=== PATIENT | female | born 1935 | race Caucasian/White ===

== ENCOUNTER 2017-10-29 15:58 | Observation (INO) | payer MEDICARE ==
[~2017-10-29] VITALS: Ht 134.6 cm; Wt 36.4 kg
[2017-10-29] VITALS (9 sets, daily range): BP systolic 164–188; BP diastolic 71–94; PULSE 71–83; RESP 15–18; TEMP 96.7; O2SAT 98–100
[~2017-10-29 15:58] MED LIST: ASPI81 PO; CALTTAB2 PO; CLOP75 PO; CRES20TA PO; FISH1000 PO; METO25 PO; NIAC500 PO; PRIN5TAB PO; RANI150C PO; SYNT88TA PO; [UNRECOGNIZED DRUG - CODE] SL
[2017-10-29] MEDS ORDERED: METO-309 PO (16:09)
[2017-10-29] MEDS ORDERED: ROSU40 PO (16:09)
[2017-10-29] MEDS ORDERED: LEVO88TA2 PO (16:09)
[2017-10-29] MEDS ORDERED: TYLE325T PO (16:09)
[2017-10-29] MEDS ORDERED: SODIUM CHLORIDE 0.9% FLUSH 10 ML FLUSH IVF PRN (16:15)
[2017-10-29 16:18] LABS: AUTOMATED NEUTROPHIL # 6.6 TH/MM3 (1.8-7.7); BASOPHIL % 0.5 % (0.0-2.0); EOSINOPHIL # 0.1 TH/MM3 (0-0.4); EOSINOPHIL % 0.9 % (0.0-4.0); HEMATOCRIT 34.4 % (35.0-46.0); HEMOGLOBIN 11.1 GM/DL (11.6-15.3); LYMPH % 15.4 % (9.0-44.0); LYMPHOCYTE # 1.3 TH/MM3 (1.0-4.8); MEAN CELL VOLUME 99.7 FL (80.0-100.0); MEAN CORPUSCULAR HEMOGLOBIN 32.3 PG (27.0-34.0); MEAN CORPUSCULAR HGB CONC 32.4 % (32.0-36.0); MEAN PLATELET VOLUME 9.1 FL (7.0-11.0); MONO % 5.3 % (0.0-8.0); MONOCYTE # 0.5 TH/MM3 (0-0.9); NEUT % 77.9 % (16.0-70.0); PLATELET COUNT 267 TH/MM3 (150-450); RED BLOOD COUNT 3.45 MIL/MM3 (4.00-5.30); RED CELL DISTRIBUTION WIDTH 12.9 % (11.6-17.2); WHITE BLOOD COUNT 8.5 TH/MM3 (4.0-11.0)
[2017-10-29 16:26] LABS: CHLORIDE 107 MEQ/L (98-107); SODIUM (NA) 140 MEQ/L (136-145)
[2017-10-29 16:29] LABS: ALBUMIN 3.5 GM/DL (3.4-5.0); BICARBONATE 24.5 MEQ/L (21.0-32.0); CALCIUM 8.8 MG/DL (8.5-10.1)
[2017-10-29 16:30] LABS: BLOOD UREA NITROGEN 41 MG/DL (7-18); GLUCOSE,RANDOM 143 MG/DL (74-106)
[2017-10-29 16:32] LABS: ALT (GPT) 22 U/L (10-53); AST (GOT) 18 U/L (15-37)
[2017-10-29 16:33] LABS: GLOMERULAR FILTRATION RATE 31 ML/MIN (>89)
[2017-10-29 16:34] LABS: TOTAL BILIRUBIN ADULT 0.2 MG/DL (0.2-1.0); TOTAL PROTEIN 7.2 GM/DL (6.4-8.2)
[2017-10-29 16:35] LABS: ALKALINE PHOSPHATASE 104 U/L (45-117)
--- NOTE | 2017-10-29 16:35 | PD ---
HPI Chief Complaint: Neuro Symptoms/ Deficits Time Seen by Provider: 16:02 Travel History International Travel<30 days: No Contact w/Intl Traveler<30days: No Traveled to known affect area: No History of Present Illness HPI Patient's 82 years old and arrives to the ER with a health licensed investment sales assistant. Approximately 8 hours prior to ER arrival she developed confusion and abnormal speech. Confusion was intermittent 8 hours ultimately precipitating the ER visit. She has been in her normal state of health lately however her and her principal care provider at home recently underwent surgery, presumably a stressor for the patient. In the ER she has no pain shortness of breath fever nausea and dizziness and weakness to report. No new or different medication. PFSH Past Medical History Arthritis: Yes Blood Disorders: No Heart Rhythm Problems: No Cancer: No Cardiovascular Problems: Yes High Cholesterol: Yes Chemotherapy: No Chest Pain: Yes Congestive Heart Failure: No Coronary Artery Disease: Yes Diabetes: No Endocrine: Yes GERD: No Genitourinary: Yes Headaches: Yes Hepatitis: No Hiatal Hernia: Yes Hypertension: Yes Immune Disorder: No Kidney Stones: No Musculoskeletal: Yes Neurologic: Yes Psychiatric: No Reproductive: No Respiratory: Yes Radiation Therapy: No Renal Failure: No Thyroid Disease: Yes (HYPOTHYROIDISM) Ulcer: No ?: Not Menopausal: Yes Past Surgical History Abdominal Surgery: Yes (CHOLECYSTECTOMY) AICD: No Appendectomy: No Arteriovenous Shunt: No Cardiac Surgery: Yes (CARDIAC STENT PLACEMENT) Cholecystectomy: Yes Coronary Artery Bypass Graft: Yes Coronary Stent: Yes Eye Surgery: Yes (MAcULAR DEGENERATION/laser sx) Insulin Pump: No Joint Replacement: No Pacemaker: No Thoracic Surgery: Yes (CABG X 3 ) Tonsillectomy: Yes Other Surgery: Yes Social History Alcohol Use: No Tobacco Use: No Substance Use: No Allergies-Medications (Allergen,Severity, Reaction): Coded Allergies: Sulfa (Sulfonamide Antibiotics) (Verified Allergy, Severe, NAUSEA, 10/29/17) codeine (Verified Allergy, Severe, NAUSEA, 10/29/17) penicillin G (Verified Allergy, Severe, NAUSEA, 10/29/17) propoxyphene (Verified Allergy, Unknown, 10/29/17) Reported Meds & Prescriptions Reported Meds & Active Scripts Active Reported Tylenol (Acetaminophen) 325 Mg Tab 650 Mg PO Q4H PRN Levothyroxine (Levothyroxine Sodium) 88 Mcg Tab 88 Mcg PO DAILY Lopressor (Metoprolol Tartrate) 50 Mg Tab 25 Mg PO BID Crestor (Rosuvastatin Calcium) 40 Mg Tab 80 Mg PO HS Review of Systems Except as stated in HPI: all other systems reviewed are Neg General / Constitutional: No: Fever Gastrointestinal: No: Nausea Physical Exam Narrative GENERAL: 82 yo F, WNWD, mild anxiety SKIN: Warm and dry. HEAD: Atraumatic. Normocephalic. EYES: Pupils equal and round. No scleral icterus. No injection or drainage. ENT: No nasal bleeding or discharge. Mucous membranes pink and moist. NECK: Trachea midline. No JVD. CARDIOVASCULAR: Regular rate and rhythm. RESPIRATORY: No accessory muscle use. Clear to auscultation. Breath sounds equal bilaterally. GASTROINTESTINAL: Abdomen soft, non-tender, nondistended. Hepatic and splenic margins not palpable. MUSCULOSKELETAL: Extremities without clubbing, cyanosis, or edema. No obvious deformities. NEUROLOGICAL: AOx3. CNIII-XII. Motor function normal x all four extremities. Speech is normal. PSYCHIATRIC: Appropriate mood and affect; insight and judgment normal. Data Data Last Documented VS Vital Signs Date Time Temp Pulse Resp B/P (MAP) Pulse Ox O2 Delivery O2 Flow Rate FiO2 10/29/17 17:00 77 16 173/78 (109) 100 Room Air VS Orders Orders Electrocardiogram (10/29/17 16:06) Prothrombin Time / Inr (Pt) (10/29/17 16:06) Act Partial Throm Time (Ptt) (10/29/17 16:06) Complete Blood Count With Diff (10/29/17 16:06) Comprehensive Metabolic Panel (10/29/17 16:06) Drug Screen, Random Urine (10/29/17 16:06) Ua Includes Microscopic (10/29/17 16:06) Ct Brain W/O Iv Contrast(Rout) (10/29/17 16:06) Ecg Monitoring (10/29/17 16:06) Iv Access Insert/Monitor (10/29/17 16:06) Oximetry (10/29/17 16:06) Blood Glucose (10/29/17 16:06) Sodium Chloride 0.9% Flush (Ns Flush) (10/29/17 16:15) Troponin I (10/29/17 16:29) Aspirin (Aspirin) (10/29/17 18:15) Admit Order (Ed Use Only) (10/29/17 ) Soil Conservation Teacher / Telemetry KANCHAN.Q8H (10/29/17 18:09) Vital Signs (Adult) Q4H (10/29/17 18:09) Diet 1999 Ada Cons Carb (10/29/17 Dinner) Activity Bed Rest (10/29/17 18:09) Notify Dr: Other (10/29/17 18:09) Labs Laboratory Tests Test 10/29/17 16:05 10/29/17 17:50 White Blood Count 8.5 TH/MM3 Red Blood Count 3.45 MIL/MM3 Hemoglobin 11.1 GM/DL Hematocrit 34.4 % Mean Corpuscular Volume 99.7 FL Mean Corpuscular Hemoglobin 32.3 PG Mean Corpuscular Hemoglobin Concent 32.4 % Red Cell Distribution Width 12.9 % Platelet Count 267 TH/MM3 Mean Platelet Volume 9.1 FL Neutrophils (%) (Auto) 77.9 % Lymphocytes (%) (Auto) 15.4 % Monocytes (%) (Auto) 5.3 % Eosinophils (%) (Auto) 0.9 % Basophils (%) (Auto) 0.5 % Neutrophils # (Auto) 6.6 TH/MM3 Lymphocytes # (Auto) 1.3 TH/MM3 Monocytes # (Auto) 0.5 TH/MM3 Eosinophils # (Auto) 0.1 TH/MM3 Basophils # (Auto) 0.0 TH/MM3 CBC Comment DIFF FINAL Differential Comment Prothrombin Time 10.0 SEC Prothromb Time International Ratio 1.0 RATIO Activated Partial Thromboplast Time 22.2 SEC Blood Urea Nitrogen 41 MG/DL Creatinine 1.60 MG/DL Random Glucose 143 MG/DL Total Protein 7.2 GM/DL Albumin 3.5 GM/DL Calcium Level 8.8 MG/DL Alkaline Phosphatase 104 U/L Aspartate Amino Transf (AST/SGOT) 18 U/L Alanine Aminotransferase (ALT/SGPT) 22 U/L Total Bilirubin 0.2 MG/DL Sodium Level 140 MEQ/L Potassium Level 4.1 MEQ/L Chloride Level 107 MEQ/L Carbon Dioxide Level 24.5 MEQ/L Anion Gap 9 MEQ/L Estimat Glomerular Filtration Rate 31 ML/MIN Troponin I LESS THAN 0.02 NG/ML Urine pH 6.0 Urine Protein 100 mg/dL Urine Glucose (UA) NEG mg/dL Urine Ketones NEG mg/dL Urine Occult Blood TRACE Urine Nitrite NEG Urine Bilirubin NEG Urine Leukocyte Esterase NEG MDM Medical Decision Making Medical Screen Exam Complete: Yes Emergency Medical Condition: Yes Medical Record Reviewed: Yes Differential Diagnosis Metabolic disarray, sepsis, UTI, stroke, TIA, dementia Narrative Course CBC & BMP Diagram 10/29/17 16:05 Total Protein 7.2, Albumin 3.5, Calcium Level 8.8, Alkaline Phosphatase 104, Aspartate Amino Transf (AST/SGOT) 18, Alanine Aminotransferase (ALT/SGPT) 22, Total Bilirubin 0.2 Tn < 0.02 EKG: sinus rate 85 non-specific st changes multiple leads Last Impressions Head CT 10/29/17 1606 Signed Impressions: Service Date/Time: Sunday, October 29, 2017 16:43 - CONCLUSION: Negative for an acute process. David Chery MD FACR Case was discussed with Dr. Wiggins for 4 to [facility]. The patient will be admitted for TIA evaluation. Aspiring given here. Diagnosis Primary Impression: TIA (transient ischemic attack) Qualified Codes: G45.9 - Transient cerebral ischemic attack, unspecified Admitting Information Admitting Physician Requests: Observation Yon Lofton MD Oct 29, 2017 16:35
--- NOTE | 2017-10-29 17:10 | RADRPT ---
EXAM DATE/TIME: 10/29/2017 16:43 [facility] COMPARISON: No previous studies available for comparison. INDICATIONS : Confusion and slurred speech. RADIATION DOSE: 55.75 CTDIvol (mGy) MEDICAL HISTORY : Hypertension. SURGICAL HISTORY : None. ENCOUNTER: Initial ACUITY: 1 day PAIN SCALE: 0/10 LOCATION: cranial TECHNIQUE: Multiple contiguous axial images were obtained of the head. Using automated exposure control and adj ustment of the mA and/or kV according to patient size, radiation dose was kept as low as reasonably a chievable to obtain optimal diagnostic quality images. DICOM format image data is available electro nically for review and comparison. FINDINGS: CEREBRUM: The ventricles are normal for age. No evidence of midline shift, mass lesion, hemorrhage or acute in farction. No extra-axial fluid collections are seen. POSTERIOR FOSSA: The cerebellum and brainstem are intact. The 4th ventricle is midline. The cerebellopontine angle i s unremarkable. EXTRACRANIAL: The visualized portion of the orbits is intact. SKULL: The calvaria is intact. No evidence of skull fracture. CONCLUSION: Negative for an acute process. David Chery MD FACR on October 29, 2017 at 17:07 Board Certified Radiologist. This report was verified electronically.
[2017-10-29 18:10] LABS: BILIRUBIN, URINE NEG (NEG); GLUCOSE,URINE NEG (NEG); KETONE, URINE NEG (NEG); NITRITE,URINE NEG (NEG); URINE LEUKOCYTE ESTERASE NEG (NEG)
[2017-10-29 18:13] LABS: BLOOD, URINE TRACE (NEG)
[2017-10-29] MEDS ORDERED: ASPIRIN 325 MG TAB PO ONE (18:15)
[2017-10-29 18:29] LABS: URINE COLOR YELLOW (YELLW/STRAW)
[2017-10-29 18:30] LABS: SQUAMOUS EPITHELIAL CELL URINE 0-5 /hpf (0-5); WBC, URINE 0-2 /hpf (0-5)
[2017-10-29] MEDS ORDERED: ROSU20 PO (19:16)
[2017-10-29] MEDS ORDERED: ROSUVASTATIN PO SCH (21:00)
[2017-10-29] MEDS: METOPROLOL TARTRATE 25 MG TAB PO SCH (23:18)
--- NOTE | 2017-10-29 23:42 | HHI.HP ---
HPI Service [facility] Hospitalists Primary Care Physician Frankie Mtz MD Admission Diagnosis TIA Chief Complaint: possible TIA Travel History International Travel<30 Days: No Contact w/Intl Traveler <30 Da: No Traveled to Known Affected Are: No History of Present Illness Patient's 82 years old and arrives to the ER with a health video library assistant. Approximately 8 hours prior to ER arrival she developed confusion and abnormal speech. Confusion was intermittent 8 hours ultimately precipitating the ER visit. She has been in her normal state of health lately however her and her principal care provider at home recently underwent surgery, presumably a stressor for the patient. In the ER she has no pain shortness of breath fever nausea and dizziness and weakness to report. No new or different medication. Review of Systems Neurologic: COMPLAINS OF: Speech Problems Past Family Social History Past Medical History htn,hyperlipidemia cad hypothyroid Past Surgical History cabg stent gallbladder Reported Medications Tylenol (Acetaminophen) 325 Mg Tab 650 Mg PO Q4H PRN Levothyroxine (Levothyroxine Sodium) 88 Mcg Tab 88 Mcg PO DAILY Lopressor (Metoprolol Tartrate) 50 Mg Tab 25 Mg PO BID Crestor (Rosuvastatin Calcium) 40 Mg Tab 80 Mg PO Allergies: Coded Allergies: Sulfa (Sulfonamide Antibiotics) (Verified Allergy, Severe, NAUSEA, 10/29/17) codeine (Verified Allergy, Severe, NAUSEA, 10/29/17) penicillin G (Verified Allergy, Severe, NAUSEA, 10/29/17) propoxyphene (Verified Allergy, Unknown, 10/29/17) Social History NS,ND Physical Exam Vital Signs Vital Signs Date Time Temp Pulse Resp B/P (MAP) Pulse Ox O2 Delivery O2 Flow Rate FiO2 10/29/17 21:00 96.7 71 16 164/71 (102) 100 10/29/17 20:37 181/89 (119) 98 10/29/17 20:30 96.7 71 16 167/71 (103) 100 10/29/17 19:10 72 15 172/80 (110) 98 Room Air 10/29/17 18:00 76 16 182/94 (123) 100 Room Air 10/29/17 17:00 77 16 173/78 (109) 100 Room Air 10/29/17 16:09 83 18 188/91 (123) 100 10/29/17 16:05 16 100 Room Air 10/29/17 16:05 75 16 100 Room Air Physical Exam GENERAL: This is a well-nourished, well-developed patient, in no apparent distress. SKIN: No rashes, ecchymoses or lesions. Cool and dry. HEAD: Atraumatic. Normocephalic. No temporal or scalp tenderness. EYES: Pupils equal round and reactive. Extraocular motions intact. No scleral icterus. No injection or drainage. ENT: Nose without bleeding, purulent drainage or septal hematoma. Throat without erythema, tonsillar hypertrophy or exudate. Uvula midline. Airway patent. NECK: Trachea midline. No JVD or lymphadenopathy. Supple, nontender, no meningeal signs. CARDIOVASCULAR: Regular rate and rhythm without murmurs, gallops, or rubs. RESPIRATORY: Clear to auscultation. Breath sounds equal bilaterally. No wheezes , rales, or rhonchi. GASTROINTESTINAL: Abdomen soft, non-tender, nondistended. No hepato-splenomegaly , or palpable masses. No guarding. MUSCULOSKELETAL: Extremities without clubbing, cyanosis, or edema. No joint tenderness, effusion, or edema noted. No calf tenderness. Negative Homans sign bilaterally. NEUROLOGICAL: Awake and alert. Cranial nerves II through XII intact. Motor and sensory grossly within normal limits. Five out of 5 muscle strength in all muscle groups. Normal speech. Laboratory Laboratory Tests Test 10/29/17 16:05 10/29/17 17:50 White Blood Count 8.5 Red Blood Count 3.45 Hemoglobin 11.1 Hematocrit 34.4 Mean Corpuscular Volume 99.7 Mean Corpuscular Hemoglobin 32.3 Mean Corpuscular Hemoglobin Concent 32.4 Red Cell Distribution Width 12.9 Platelet Count 267 Mean Platelet Volume 9.1 Neutrophils (%) (Auto) 77.9 Lymphocytes (%) (Auto) 15.4 Monocytes (%) (Auto) 5.3 Eosinophils (%) (Auto) 0.9 Basophils (%) (Auto) 0.5 Neutrophils # (Auto) 6.6 Lymphocytes # (Auto) 1.3 Monocytes # (Auto) 0.5 Eosinophils # (Auto) 0.1 Basophils # (Auto) 0.0 CBC Comment DIFF FINAL Differential Comment Prothrombin Time 10.0 Prothromb Time International Ratio 1.0 Activated Partial Thromboplast Time 22.2 Blood Urea Nitrogen 41 Creatinine 1.60 Random Glucose 143 Total Protein 7.2 Albumin 3.5 Calcium Level 8.8 Alkaline Phosphatase 104 Aspartate Amino Transf (AST/SGOT) 18 Alanine Aminotransferase (ALT/SGPT) 22 Total Bilirubin 0.2 Sodium Level 140 Potassium Level 4.1 Chloride Level 107 Carbon Dioxide Level 24.5 Anion Gap 9 Estimat Glomerular Filtration Rate 31 Troponin I LESS THAN 0.02 Urine Color YELLOW Urine Turbidity CLEAR Urine pH 6.0 Urine Specific Norman 1.012 Urine Protein 100 Urine Glucose (UA) NEG Urine Ketones NEG Urine Occult Blood TRACE Urine Nitrite NEG Urine Bilirubin NEG Urine Leukocyte Esterase NEG Urine WBC 0-2 Urine Squamous Epithelial Cells 0-5 Microscopic Urinalysis Comment CULT NOT INDICATED Urine Opiates Screen NEG Urine Barbiturates Screen NEG Urine Amphetamines Screen NEG Urine Benzodiazepines Screen NEG Urine Cocaine Screen NEG Urine Cannabinoids Screen NEG Result Diagram: 10/29/17 1605 10/29/17 1605 Imaging Last [address] 10/29/17 1606 Signed Impressions: Service Date/Time: Sunday, October 29, 2017 16:43 - CONCLUSION: Negative for an acute process. David Chery MD FACR Caprini VTE Risk Assessment Caprini VTE Risk Assessment: Mod/High Risk (score >= 2) Caprini Risk Assessment Model Point Value = 1 Point Value = 2 Point Value = 3 Point Value = 5 Age 41-60 Minor surgery BMI > 25 kg/m2 Swollen legs Varicose veins or History of unexplained or recurrent spontaneous Oral contraceptives or hormone replacement Sepsis (< 1 month) Serious lung disease, including pneumonia (< 1 month) Abnormal pulmonary function Acute myocardial infarction Congestive heart failure (< 1 month) History of inflammatory bowel disease Medical patient at bed rest Age 61-74 Arthroscopic surgery Major open surgery (> 45 min) Laparoscopic surgery (> 45 min) Malignancy Confined to bed (> 72 hours) Immobilizing plaster cast Central venous access Age >= 75 History of VTE Family history of VTE Factor V Leiden Prothrombin [id number] Lupus anticoagulant Anticardiolipin antibodies Elevated serum homocysteine Heparin-induced thrombocytopenia Other congenital or acquired thrombophilia Stroke (< 1 month) Elective arthroplasty Hip, pelvis, or leg fracture Acute spinal cord injury (< 1 month) Prophylaxis Regimen Total Risk Factor Score Risk Level Prophylaxis Regimen 0-1 Low Early ambulation 2 Moderate Order ONE of the following: *Sequential Compression Device (SCD) *Heparin 5000 units SQ BID 3-4 Higher Order ONE of the following medications: *Heparin 5000 units SQ TID *Enoxaparin/Lovenox 40 mg SQ daily (WT < 150 kg, CrCl > 30 mL/min) *Enoxaparin/Lovenox 30 mg SQ daily (WT < 150 kg, CrCl > 10-29 mL/min) *Enoxaparin/Lovenox 30 mg SQ BID (WT < 150 kg, CrCl > 30 mL/min) AND/OR *Sequential Compression Device (SCD) 5 or more Highest Order ONE of the following medications: *Heparin 5000 units SQ TID (Preferred with Epidurals) *Enoxaparin/Lovenox 40 mg SQ daily (WT < 150 kg, CrCl > 30 mL/min) *Enoxaparin/Lovenox 30 mg SQ daily (WT < 150 kg, CrCl > 10-29 mL/min) *Enoxaparin/Lovenox 30 mg SQ BID (WT < 150 kg, CrCl > 30 mL/min) AND *Sequential Compression Device (SCD) Assessment and Plan Problem List: (1) TIA (transient ischemic attack) ICD Codes: G45.9 - Transient cerebral ischemic attack, unspecified Status: Acute Plan: neuro evaluation ,asa ,MRI brain ,Mra neck 2d echo (2) Hypertension ICD Codes: I10 - Essential (primary) hypertension Plan: continue home meds Assessment and Plan further plan as case develops Code Status full Discussed Condition With patient Problem Qualifiers (1) TIA (transient ischemic attack): Qualified Codes: G45.9 - Transient cerebral ischemic attack, unspecified Foster Lagos MD Oct 29, 2017 23:42
[2017-10-30] VITALS: BP 144/65; PULSE 68; RESP 16; TEMP 96.4; O2SAT 98
[2017-10-30 04:59] VITALS: BP 172/75; PULSE 67; RESP 18; TEMP 96.9; O2SAT 97
[2017-10-30] MEDS ORDERED: LEVOTHYROXINE SODIUM 88 MCG TAB PO SCH (06:00)
[2017-10-30 08:00] VITALS: BP 158/68; PULSE 66; RESP 16; TEMP 97.1; O2SAT 98
[2017-10-30 08:05] VITALS: PULSE 68
[2017-10-30] MEDS: METOPROLOL TARTRATE 25 MG TAB PO SCH (09:14)
--- NOTE | 2017-10-30 09:57 | ECHRPT ---
Indication: CVA/TIA CONCLUSIONS The left ventricular systolic function is low normal about 50%. Normal left ventricular size. Wall thickness is borderline increased No obvious regional wall motion abnormalities are present. Mild mitral annular thickening. Trace mitral valve regurgitation. Trileaflet aortic valve mildly sclerotic. Mildly calcified aortic root. There is mild tricuspid valve regurgitation. The estimated pulmonary arterial pressure is 32.1 mmHg. BP: 172 / 75 HR: 107 Rhythm: Sinus MEASUREMENTS (Male / Female) Normal Values Technical Quality:Good 2D ECHO LV Diastolic Diameter PLAX 4.3 cm 4.2 - 5.9 / 3.9 - 5.3 cm LV Systolic Diameter PLAX 3.1 cm IVS Diastolic Thickness 0.9 cm 0.6 - 1.0 / 0.6 - 0.9 cm LVPW Diastolic Thickness 0.9 cm 0.6 - 1.0 / 0.6 - 0.9 cm LV Relative Wall Thickness 0.4 RV Internal Dim ED PLAX 2.0 cm LVOT Diameter 1.7 cm LA Systolic Diameter LX 4.0 cm 3.0 - 4.0 / 2.7 - 3.8 cm LV Ejection Fraction MOD 4C 53.1 % LV Cardiac Index MOD 4C 2380.0 cm/minm LV Ejection Fraction 4C AL 55.0 % LV Cardiac Index 4C AL 2552.2 cm/minm M-MODE Aortic Root Diameter MM 1.8 cm LA Systolic Diameter MM 3.9 cm LA Ao Ratio MM 2.2 AV Cusp Separation MM 1.4 cm DOPPLER AV Peak Velocity 125.0 cm/s AV Peak Gradient 6.3 mmHg LVOT Peak Velocity 103.0 cm/s LVOT Peak Gradient 4.2 mmHg AV Area Cont Eq pk 1.9 cm MV Peak Velocity 113.0 cm/s MV Peak Gradient 5.1 mmHg MV Mean Velocity 64.8 cm/s MV Mean Gradient 2.0 mmHg MV Area PHT 4.0 cm Mitral E Point Velocity 97.2 cm/s Mitral A Point Velocity 99.2 cm/s Mitral E to A Ratio 1.0 LV E' Lateral Velocity 5.0 cm/s Mitral E to LV E' Lateral Ratio 19.6 LV E' Septal Velocity 3.8 cm/s Mitral E to LV E' Septal Ratio 25.6 TR Peak Velocity 235.0 cm/s TR Peak Gradient 22.1 mmHg Right Atrial Pressure 10.0 mmHg Pulmonary Artery Systolic Pressu 32.1 mmHg Right Ventricular Systolic Press 32.1 mmHg PV Peak Velocity 85.5 cm/s PV Peak Gradient 2.9 mmHg FINDINGS LEFT VENTRICLE The left ventricular systolic function is low normal about 50%. Normal left ventricular size. Wall thickness is borderline increased No obvious regional wall motion abnormalities are present. RIGHT VENTRICLE Normal right ventricular size and systolic function. LEFT ATRIUM The left atrial size is normal. RIGHT ATRIUM The right atrial size is normal. ATRIAL SEPTUM Normal atrial septal thickness without atrial level shunting by limited color doppler interrogation. AORTA The aortic root and proximal ascending aorta are normal in size on limited imaging. MITRAL VALVE Mild mitral annular thickening. Trace mitral valve regurgitation. AORTIC VALVE Trileaflet aortic valve mildly sclerotic. Mildly calcified aortic root. TRICUSPID VALVE Structurally normal tricuspid valve. There is mild tricuspid valve regurgitation. The estimated pulmonary arterial pressure is 32.1 mmHg. PULMONARY VALVE No pulmonary valve regurgitation or stenosis. VESSELS The inferior vena cava is normal in size. PERICARDIUM No pericardial effusion. Shad Valdivia MD (Electronically Signed) Final Date:30 October 2017 09:56
[2017-10-30] MEDS ORDERED: DIAZEPAM 2 MG TAB PO ONE (11:15)
[2017-10-30] MEDS ORDERED: GADOBENATE DIM PF 529 MG/ML 20ML VIAL (for RAD MRI) IV ONE (11:47)
[2017-10-30 12:00] VITALS: BP 132/53; PULSE 65; RESP 16; TEMP 96.9; O2SAT 100
--- NOTE | 2017-10-30 13:12 | RADRPT ---
EXAM DATE/TIME: 10/30/2017 11:30 [facility] COMPARISON: No previous studies available for comparison. INDICATIONS : CVA. Slurred speech and confusion CONTRAST: 20 cc Multihance (gadobenate) IV MEDICAL HISTORY : Hypertension. Hypothyroidism. SURGICAL HISTORY : CABG Coronary artery stent. Cholecystectomy. Tonsillectomy. ENCOUNTER: Initial ACUITY: 1 day PAIN SCORE: 0/10 LOCATION: Head. TECHNIQUE: Multiplanar, multisequence MRI of the brain was performed both prior to and following the administrat ion of paramagnetic contrast. FINDINGS: There is an acute infarct in the right MCA distribution measuring about 3.7 cm in maximal diameter. S ubcentimeter infarct also present in the left MCA distribution in the posterior left frontal lobe. Mild white matter ischemic changes. Remote small lacunar infarcts in the cerebellum. Mild ischemic ch anges in the brainstem. Vertical volume loss. No abnormal enhancing lesions post contrast other than some mild enhancement at the right MCA infarct. CONCLUSION: 1. 3.7 cm infarct in right MCA distribution with mild associated enhancement postcontrast. 2. Subcentimeter infarct left MCA distribution peripherally. 3. No mass effect or shift. Remote lacunar infarcts in the cerebellum. Cortical volume loss. Steven Rice MD on October 30, 2017 at 13:05 Board Certified Radiologist. This report was verified electronically.
[2017-10-30] MEDS ORDERED: ASPIRIN EC 325 MG TABEC PO ONE (15:00)
--- NOTE | 2017-10-30 15:33 | HHI.PR ---
Subjective Remarks Patient feeling well ambulating ,no recurrence slurred speech or confusion, patient did have episode yesterday after eating some chicken with touch of alcohol in chicken, Patient had negative ct head 2d echo no significant findings on MRI 3.7 infarct right MCA and subcentimeter Left MCA with old lacunar infarcts as patient asymptomatic i discussed with neurology and will continue on asa 325mg and will get PT to evaluate i will like to watch patient for few days at rehab with PT . Patient did state that several weeks ago did have lightheaded spell. Pending is MRA Objective Vitals GENERAL: SKIN: Warm and dry. HEAD: Atraumatic. Normocephalic. EYES: Pupils equal and round. No scleral icterus. No injection or drainage. ENT: No nasal bleeding or discharge. Mucous membranes pink and moist. NECK: Trachea midline. No JVD. CARDIOVASCULAR: Regular rate and rhythm. RESPIRATORY: No accessory muscle use. Clear to auscultation. Breath sounds equal bilaterally. GASTROINTESTINAL: Abdomen soft, non-tender, nondistended. Hepatic and splenic margins not palpable. MUSCULOSKELETAL: Extremities without clubbing, cyanosis, or edema. No obvious deformities. NEUROLOGICAL: Awake and alert. No obvious cranial nerve deficits. Motor grossly within normal limits. Five out of 5 muscle strength in the arms and legs. Normal speech. PSYCHIATRIC: Appropriate mood and affect; insight and judgment normal. Vital Signs Date Time Temp Pulse Resp B/P (MAP) Pulse Ox O2 Delivery O2 Flow Rate FiO2 10/30/17 12:00 96.9 65 16 132/53 (79) 100 10/30/17 08:00 97.1 66 16 158/68 (98) 98 10/30/17 04:59 96.9 67 18 172/75 (107) 97 10/30/17 00:00 96.4 68 16 144/65 (91) 98 10/29/17 23:27 72 10/29/17 21:00 96.7 71 16 164/71 (102) 100 10/29/17 20:37 181/89 (119) 98 10/29/17 20:30 96.7 71 16 167/71 (103) 100 10/29/17 19:10 72 15 172/80 (110) 98 Room Air 10/29/17 18:00 76 16 182/94 (123) 100 Room Air 10/29/17 17:00 77 16 173/78 (109) 100 Room Air 10/29/17 16:09 83 18 188/91 (123) 100 10/29/17 16:05 16 100 Room Air 10/29/17 16:05 75 16 100 Room Air 10/30/17 10/30/17 10/31/17 15:00 23:00 07:00 Intake Total 720 ml Output Total 1200 ml Balance -480 ml Intake Oral 720 ml Output Urine Total 1200 ml # Bowel Movements 1 Result Diagram: 10/29/17 1605 10/29/17 1605 Imaging Last [address] 10/29/17 1606 Signed Impressions: Service Date/Time: Sunday, October 29, 2017 16:43 - CONCLUSION: Negative for an acute process. David Chery MD FACR A/P Problem List: (1) CVA (cerebral vascular accident) ICD Codes: I63.9 - Cerebral infarction, unspecified Plan: based on MRI on asa 325 patient stable without any recurrence of symptoms (2) TIA (transient ischemic attack) ICD Codes: G45.9 - Transient cerebral ischemic attack, unspecified Status: Acute Plan: discussed with neuro as patient has no symptoms the findings on MRI may be old but agrees to send patient to rehab for therapy ,patient leaves with but also at rehab post lumbar surgery. (3) Hypertension ICD Codes: I10 - Essential (primary) hypertension Plan: continue home meds Assessment and Plan as above will arrange rehab Discharge Planning to rehab Problem Qualifiers (1) CVA (cerebral vascular accident): (2) TIA (transient ischemic attack): Qualified Codes: G45.9 - Transient cerebral ischemic attack, unspecified Foster Lagos MD Oct 30, 2017 15:33
[2017-10-30] MEDS ORDERED: ASPI325T33 PO (15:52)
[2017-10-30 16:00] VITALS: BP 173/85; PULSE 71; RESP 16; TEMP 97.1; O2SAT 99
--- NOTE | 2017-10-30 16:00 | HHI.DS ---
Discharge Summary Admission Date Oct 29, 2017 at 18:11 Admitting Diagnosis TIA (1) CVA (cerebral vascular accident) Diagnosis: Principal ICD Codes: I63.9 - Cerebral infarction, unspecified (2) TIA (transient ischemic attack) Diagnosis: Principal ICD Codes: G45.9 - Transient cerebral ischemic attack, unspecified Status: Acute (3) Hypertension Diagnosis: Secondary ICD Codes: I10 - Essential (primary) hypertension Brief History Patient's 82 years old and arrives to the ER with a health recruiting assistant. Approximately 8 hours prior to ER arrival she developed confusion and abnormal speech. Confusion was intermittent 8 hours ultimately precipitating the ER visit. She has been in her normal state of health lately however her and her principal care provider at home recently underwent surgery, presumably a stressor for the patient. In the ER she has no pain shortness of breath fever nausea and dizziness and weakness to report. No new or different medication. CBC/BMP: 10/29/17 1605 10/29/17 1605 Significant Findings Laboratory Tests Test 10/29/17 16:05 10/29/17 17:50 Red Blood Count 3.45 MIL/MM3 (4.00-5.30) Hemoglobin 11.1 GM/DL (11.6-15.3) Hematocrit 34.4 % (35.0-46.0) Neutrophils (%) (Auto) 77.9 % (16.0-70.0) Activated Partial Thromboplast Time 22.2 SEC (24.3-30.1) Blood Urea Nitrogen 41 MG/DL (7-18) Creatinine 1.60 MG/DL (0.50-1.00) Random Glucose 143 MG/DL (74-106) Estimat Glomerular Filtration Rate 31 ML/MIN (>89) Troponin I LESS THAN 0.02 NG/ML Urine Protein 100 mg/dL (NEG-TRACE) Urine Occult Blood TRACE (NEG) Imaging Last 24 hours Impressions Brain MRI 10/30/17 0000 Signed Impressions: Service Date/Time: October 11:30 - CONCLUSION: 1. 3.7 cm infarct in right MCA distribution with mild associated enhancement postcontrast. 2. Subcentimeter infarct left MCA distribution peripherally. 3. No mass effect or shift. Remote lacunar infarcts in the cerebellum. Cortical volume loss. Steven Rice MD Head CT 10/29/17 1606 Signed Impressions: Service Date/Time: Sunday, October 29, 2017 16:43 - CONCLUSION: Negative for an acute process. David Chery MD FACR PE at Discharge GENERAL: SKIN: Warm and dry. HEAD: Atraumatic. Normocephalic. EYES: Pupils equal and round. No scleral icterus. No injection or drainage. ENT: No nasal bleeding or discharge. Mucous membranes pink and moist. NECK: Trachea midline. No JVD. CARDIOVASCULAR: Regular rate and rhythm. RESPIRATORY: No accessory muscle use. Clear to auscultation. Breath sounds equal bilaterally. GASTROINTESTINAL: Abdomen soft, non-tender, nondistended. Hepatic and splenic margins not palpable. MUSCULOSKELETAL: Extremities without clubbing, cyanosis, or edema. No obvious deformities. NEUROLOGICAL: Awake and alert. No obvious cranial nerve deficits. Motor grossly within normal limits. Five out of 5 muscle strength in the arms and legs. Normal speech. PSYCHIATRIC: Appropriate mood and affect; insight and judgment normal. Transfer Summary Patient admitted with history 8 hours before arriving to er after eating chicken with alcohol mixed in developed slurred speech confusion which when she came to er was resolved ,patient on discussion with me does recall about 2-3 weeks ago had dizziness and was not feeling right and she felt that was related to her being worried as her was to have lumbar surgery and did not seek any medical evaluation. Admitted for work up labs bmp cbc u/a and CT head 2d echo no acute findings and on physical has no residual symptoms . Discussed with neurology continue asa 325mg and agrees with me to send patient to rehab on MRI has 3.7 infarct RT MCA subcentimeter Lt MCA old lacunar infarcts cerebellum . Radiology feels the finding could be old and related to episode that occurred 2-3 weeks ago . Pending is MRA will send to rehab and i will follow and watch for any new neurologic findings . Pt Condition on Discharge: Good Discharge Disposition: Discharge to SNF Discharge Instructions DIET: Follow Instructions for: Heart Healthy Diet Activities you can perform: Regular-No Restrictions Other Activity Instructions: patient needs help to bathroom New Medications: Aspirin DR (Aspirin EC) 325 Mg Tabdr 325 MG PO DAILY for Stroke Prevention MDD 325 for 30 Days, #30 TAB Continued Medications: Acetaminophen (Tylenol) 325 Mg Tab 650 MG PO Q4H PRN for PAIN SCALE 1 TO 10, TAB 0 Refills Levothyroxine (Levothyroxine) 88 Mcg Tab 88 MCG PO DAILY for Thyroid, #30 TAB 0 Refills Metoprolol Tartrate (Lopressor) 50 Mg Tab 25 MG PO BID, #30 TAB 0 Refills Rosuvastatin (Crestor) 40 Mg Tab 80 MG PO HS for Cholesterol Management, #30 TAB 0 Refills Rosuvastatin (Crestor) 20 Mg Tab 20 MG PO DAILY for Cholesterol Management, #30 TAB 0 Refills Foster Lagos MD Oct 30, 2017 16:00
[2017-10-31] MEDS ORDERED: ASPIRIN EC 325 MG TABEC PO SCH (09:00)
--- NOTE | 2017-10-31 17:16 | RADRPT ---
EXAM DATE/TIME: 10/30/2017 11:30 [facility] COMPARISON: No previous studies available for comparison. INDICATIONS : Stroke. Slurred speech and confusion. CONTRAST: 20 cc Multihance (gadobenate) IV MEDICAL HISTORY : Hypothyroidism. Hypertension. SURGICAL HISTORY : CABG Coronary artery stent. Cholecystectomy. Tonsillectomy. ENCOUNTER: Initial ACUITY: 1 day PAIN SCORE: 0/10 LOCATION: Head. Percent stenosis is calculated using the diameter of the stenotic region over the diameter of the nor mal distal internal carotid artery. TECHNIQUE: Bolus infused MRA of the extracranial circulation was performed using a neurovascular coil. Post pro cessing was performed including rotating subvolume maximum intensity projections of each carotid gabriela ry, rotating full volume maximum intensity projections of both carotid arteries, sagittal and coronal sliding thin slab reformations of each carotid artery, and left oblique sliding thin slab reformatio n through the aortic arch to include the origin of the arch branch vessels. FINDINGS: Percent stenosis is calculated using the diameter of the stenotic region over the diameter of the nor mal distal internal carotid artery. No abnormality is identified within the lung apices. There is normal origin of vessels from the arch without evidence of proximal stenosis. Vertebral arteries are codominant. Examination of the right common carotid artery demonstrates the vessel to be widely patent. There is 0-10% stenosis at the origin of the internal carotid artery. More distally the cervical internal mendoza tid artery is intact. Examination of the left common carotid artery demonstrates the vessel to be widely patent. There is 0 -10% stenosis at the origin of the internal carotid artery More distally the cervical internal caroti d artery is intact. CONCLUSION: 1. Unremarkable MR angiography of the cervicobrachial arch and carotid arteries. Maxi Clark MD on October 31, 2017 at 17:00 Board Certified Radiologist. This report was verified electronically.
--- NOTE | 2017-10-31 23:46 | EKG ---
Date Performed: 10/29/2017 Time Performed: 16:13:01 PTAGE: 82 years EKG: Sinus rhythm LEFT ATRIAL ENLARGEMENT INCOMPLETE RIGHT BUNDLE BRANCH BLOCK ST DEVIATION AND MODERATE T-WAVE ABNORM ALITY, CONSIDER LATERAL ISCHEMIA ABNORMAL ECG PREVIOUS TRACING : 06/01/2008 09.58 DOCTOR: Johnna Dewitt Interpretating Date/Time 10/31/2017 23:45:30
== END 2017-10-30 17:34 ==
LOC: PHED 15:58 → PHEDA 18:11 → PH3B 20:28
PROVIDERS: ADMIT Internal Medicine; ATTEND Internal Medicine
DX: I63.9 Cerebral infarction, unspecified (principal); G45.9 Transient cerebral ischemic attack, unspecified; I10 Essential (primary) hypertension; M19.90 Unspecified osteoarthritis, unspecified site; E78.00 Pure hypercholesterolemia, unspecified; I25.10 Atherosclerotic heart disease of native coronary artery without angina pectoris; K44.9 Diaphragmatic hernia without obstruction or gangrene; E03.9 Hypothyroidism, unspecified; Z79.899 Other long term (current) drug therapy; Z95.1 Presence of aortocoronary bypass graft; R94.31 Abnormal electrocardiogram [ECG] [EKG]; I45.10 Unspecified right bundle-branch block
CPT/HCPCS: 70450; 70548; 70553; 80053; 80307; 81001; 84484; 85025; 85610; 85730; 93005; 93306; 99285; A9577; G0378

== ENCOUNTER 2018-03-12 13:36 | Inpatient (IN) | payer MEDICARE ==
[~2018-03-12] VITALS: Ht 135.9 cm; Wt 37.0 kg
[~2018-03-12 13:36] MED LIST changes: +ASPI325T33 PO; -ASPI81 PO; -CALTTAB2 PO; -CLOP75 PO; -CRES20TA PO; -FISH1000 PO; +LEVO88TA2 PO; +METO-309 PO; -METO25 PO; -NIAC500 PO; -PRIN5TAB PO; -RANI150C PO; +ROSU20 PO; +ROSU40 PO; -SYNT88TA PO; +TYLE325T PO; -[UNRECOGNIZED DRUG - CODE] SL
[2018-03-12] MEDS ORDERED: HALOPERIDOL LACTATE 5 MG/ML AMP IM ONE (13:45)
[2018-03-12] MEDS ORDERED: LORazepam 2 MG/ML VIAL IM ONE (13:45)
[2018-03-12 13:55] VITALS: BP 167/79; PULSE 98; RESP 15; O2SAT 100
[2018-03-12 14:03] VITALS: BP 167/79; PULSE 98; RESP 15; O2SAT 100
[2018-03-12 14:06] VITALS: TEMP 98.1
--- NOTE | 2018-03-12 14:38 | RADRPT ---
EXAM DATE/TIME: 03/12/2018 14:15 [facility] COMPARISON: No previous studies available for comparison. INDICATIONS : Short of breath, altered mental status MEDICAL HISTORY : Hypothyroidism. Hypertension SURGICAL HISTORY : CABG. Coronary artery stent. Cholecystectomy. tonsillectomy ENCOUNTER: Initial ACUITY: 1 day PAIN SCORE: Non-responsive. LOCATION: Bilateral chest FINDINGS: A single view of the chest demonstrates the lungs to be symmetrically aerated without evidence of mas s, infiltrate or effusion. The heart size is within normal limits. There is evidence of previous car diothoracic surgery.. Osseous structures are intact. CONCLUSION: No acute disease. Justin Fletcher MD on March 12, 2018 at 14:35 Board Certified Radiologist. This report was verified electronically.
[2018-03-12 14:43] LABS: AUTOMATED NEUTROPHIL # 6.1 TH/MM3 (1.8-7.7); BASOPHIL % 0.5 % (0.0-2.0); EOSINOPHIL % 0.1 % (0.0-4.0); HEMATOCRIT 36.4 % (35.0-46.0); HEMOGLOBIN 11.9 GM/DL (11.6-15.3); LYMPH % 12.7 % (9.0-44.0); MEAN CELL VOLUME 100.2 FL (80.0-100.0); MEAN CORPUSCULAR HEMOGLOBIN 32.8 PG (27.0-34.0); MEAN CORPUSCULAR HGB CONC 32.8 % (32.0-36.0); MEAN PLATELET VOLUME 9.2 FL (7.0-11.0); MONO % 6.8 % (0.0-8.0); MONOCYTE # 0.5 TH/MM3 (0-0.9); NEUT % 79.9 % (16.0-70.0); PLATELET COUNT 210 TH/MM3 (150-450); RED BLOOD COUNT 3.63 MIL/MM3 (4.00-5.30); RED CELL DISTRIBUTION WIDTH 13.3 % (11.6-17.2); WHITE BLOOD COUNT 7.7 TH/MM3 (4.0-11.0)
--- NOTE | 2018-03-12 14:49 | PD ---
HPI Chief Complaint: Altered Mental Status Time Seen by Provider: 13:43 Travel History International Travel<30 days: No Contact w/Intl Traveler<30days: No Traveled to known affect area: No History of Present Illness HPI This is an 82-year-old female with history of TIA/CVA, hypertension, presents here with complaint of agitation and altered mental status. who is at the bedside states that over the last 2 days she has been agitated and not acting herself. There is been no reported fevers, chills. She she does have a strong family history of Alzheimer's disease. He denies that she has been weak with slurred speech. She is very aggressive and was refusing to allow anyone to touch her. The patient is unable to give any history. She she is observed being verbally abusive to the staff. PFSH Past Medical History Arthritis: Yes Asthma: No Blood Disorders: No Anxiety: No Depression: No Heart Rhythm Problems: No Cancer: No Cardiovascular Problems: Yes (cad) High Cholesterol: Yes Chemotherapy: No Chest Pain: Yes Congestive Heart Failure: No COPD: No Cerebrovascular Accident: No Coronary Artery Disease: Yes Diabetes: No Endocrine: Yes Gastrointestinal Disorders: Yes GERD: No Genitourinary: Yes Headaches: Yes Hepatitis: No Hiatal Hernia: Yes Hypertension: Yes Immune Disorder: No Kidney Stones: No Medical other: Yes (legally blind) Musculoskeletal: Yes Neurologic: Yes Psychiatric: No Reproductive: No Respiratory: No Migraines: No Radiation Therapy: No Renal Failure: No Seizures: No Sleep Apnea: No Thyroid Disease: Yes (HYPOTHYROIDISM) Ulcer: No Tetanus Vaccination: Unknown Menopausal: Yes Past Surgical History Abdominal Surgery: Yes (CHOLECYSTECTOMY) AICD: No Appendectomy: No Arteriovenous Shunt: No Cardiac Surgery: Yes (CARDIAC STENT PLACEMENT) Cholecystectomy: Yes Coronary Artery Bypass Graft: Yes Coronary Stent: Yes Ear Surgery: No Endocrine Surgery: No Eye Surgery: Yes (MAcULAR DEGENERATION/laser sx) Genitourinary Surgery: No Gynecologic Surgery: No Insulin Pump: No Joint Replacement: No Oral Surgery: No Pacemaker: No Thoracic Surgery: Yes (CABG X 3 ) Tonsillectomy: Yes Other Surgery: Yes Social History Alcohol Use: No Tobacco Use: No Substance Use: No Allergies-Medications (Allergen,Severity, Reaction): Coded Allergies: Sulfa (Sulfonamide Antibiotics) (Verified Allergy, Severe, NAUSEA, 03/12/18 ) codeine (Verified Allergy, Severe, NAUSEA, 03/12/18) penicillin G (Verified Allergy, Severe, NAUSEA, 03/12/18) propoxyphene (Verified Allergy, Unknown, 03/12/18) Reported Meds & Prescriptions Reported Meds & Active Scripts Active Aspirin EC (Aspirin) 325 Mg Tabdr 325 Mg PO DAILY MDD 325 30 Days Reported Crestor (Rosuvastatin Calcium) 20 Mg Tab 20 Mg PO DAILY Tylenol (Acetaminophen) 325 Mg Tab 650 Mg PO Q4H PRN Lopressor (Metoprolol Tartrate) 50 Mg Tab 25 Mg PO BID Crestor (Rosuvastatin Calcium) 40 Mg Tab 80 Mg PO HS Review of Systems ROS Limitations: Clinical Condition, Uncooperative, Combative Except as stated in HPI: all other systems reviewed are Neg (Unable to obtain any review of systems secondary patients clinical status.) Physical Exam Narrative GENERAL: Well-developed well-nourished female who appears agitated. SKIN: Focused skin assessment warm/dry. HEAD: Atraumatic. Normocephalic. EYES: Extraocular muscles appear intact. No scleral icterus. No injection or drainage. ENT: No nasal bleeding or discharge. Mucous membranes pink and moist. NECK: Trachea midline. No JVD. CARDIOVASCULAR: Regular rate and rhythm. No murmur appreciated. RESPIRATORY: No accessory muscle use. Clear to auscultation. Breath sounds equal bilaterally. GASTROINTESTINAL: Abdomen soft, non-tender, nondistended. Hepatic and splenic margins not palpable. MUSCULOSKELETAL: No obvious deformities. No clubbing. No cyanosis. No edema. NEUROLOGICAL: Awake and agitated. No obvious cranial nerve deficits. Motor grossly within normal limits. Normal speech. PSYCHIATRIC: Agitated and aggressive. Data Data Last Documented VS Vital Signs Date Time Temp Pulse Resp B/P (MAP) Pulse Ox O2 Delivery O2 Flow Rate FiO2 03/12/18 14:06 98.1 03/12/18 14:03 98 15 100 Room Air Orders Orders Electrocardiogram (03/12/18 13:43) Complete Blood Count With Diff (03/12/18 13:43) Comprehensive Metabolic Panel (03/12/18 13:43) Ckmb (Isoenzyme) Profile (03/12/18 13:43) Troponin I (03/12/18 13:43) Urinalysis - C+S If Indicated (03/12/18 13:43) Thyroid Stimulating Hormone (03/12/18 13:43) Chest, Single Ap (03/12/18 13:43) Ct Brain W/O Iv Contrast(Rout) (03/12/18 13:43) Iv Access Insert/Monitor (03/12/18 13:43) Ecg Monitoring (03/12/18 13:43) Oximetry (03/12/18 13:43) Haloperidol Inj (Haldol Inj) (03/12/18 13:45) Lorazepam Inj (Ativan Inj) (03/12/18 13:45) Labs Laboratory Tests Test 03/12/18 14:30 White Blood Count 7.7 TH/MM3 Red Blood Count 3.63 MIL/MM3 Hemoglobin 11.9 GM/DL Hematocrit 36.4 % Mean Corpuscular Volume 100.2 FL Mean Corpuscular Hemoglobin 32.8 PG Mean Corpuscular Hemoglobin Concent 32.8 % Red Cell Distribution Width 13.3 % Platelet Count 210 TH/MM3 Mean Platelet Volume 9.2 FL Neutrophils (%) (Auto) 79.9 % Lymphocytes (%) (Auto) 12.7 % Monocytes (%) (Auto) 6.8 % Eosinophils (%) (Auto) 0.1 % Basophils (%) (Auto) 0.5 % Neutrophils # (Auto) 6.1 TH/MM3 Lymphocytes # (Auto) 1.0 TH/MM3 Monocytes # (Auto) 0.5 TH/MM3 Eosinophils # (Auto) 0.0 TH/MM3 Basophils # (Auto) 0.0 TH/MM3 CBC Comment DIFF FINAL Differential Comment MDM Medical Decision Making Medical Screen Exam Complete: Yes Emergency Medical Condition: Yes Differential Diagnosis Metabolic derangement versus UTI versus pneumonia versus psychotic dementia. Chris Covington MD March 12, 2018 14:49
[2018-03-12 15:08] LABS: ALBUMIN 3.7 GM/DL (3.4-5.0); ALKALINE PHOSPHATASE 108 U/L (45-117); ALT (GPT) 20 U/L (10-53); AST (GOT) 44 U/L (15-37); BLOOD UREA NITROGEN 45 MG/DL (7-18); CALCIUM 9.4 MG/DL (8.5-10.1); CHLORIDE 113 MEQ/L (98-107); CREATININE 1.53 MG/DL (0.50-1.00); GLOMERULAR FILTRATION RATE 33 ML/MIN (>89); GLUCOSE,RANDOM 73 MG/DL (74-106); SODIUM (NA) 143 MEQ/L (136-145); TOTAL BILIRUBIN ADULT 0.6 MG/DL (0.2-1.0); TOTAL PROTEIN 7.4 GM/DL (6.4-8.2); TROPONIN I LESS THAN 0.02 NG/ML (0.02-0.05)
[2018-03-12] MEDS ORDERED: FERR325T18 PO (15:39)
[2018-03-12] MEDS ORDERED: LEVO50TA4 PO ×3 (15:39→15:40)
[2018-03-12] MEDS ORDERED: VITA10002 PO (15:39)
[2018-03-12] MEDS ORDERED: VITA100018 PO (15:39)
[2018-03-12] MEDS ORDERED: METO25TA3 PO (15:39)
--- NOTE | 2018-03-12 16:12 | RADRPT ---
EXAM DATE/TIME: 03/12/2018 15:43 [facility] COMPARISON: CT BRAIN W/O CONTRAST, October 29, 2017, 16:43. INDICATIONS : Altered mental status RADIATION DOSE: 34.84 CTDIvol (mGy) MEDICAL HISTORY : Cardiovascular disease. Hypertension. SURGICAL HISTORY : None. ENCOUNTER: Initial ACUITY: 2 days PAIN SCALE: 0/10 LOCATION: cranial TECHNIQUE: Multiple contiguous axial images were obtained of the head. Using automated exposure control and adj ustment of the mA and/or kV according to patient size, radiation dose was kept as low as reasonably a chievable to obtain optimal diagnostic quality images. DICOM format image data is available electro nically for review and comparison. FINDINGS: CEREBRUM: The ventricles are normal for age. Symmetric cortical atrophy. No evidence of midline shift, mass le alf, hemorrhage or acute infarction. No extra-axial fluid collections are seen. POSTERIOR FOSSA: The cerebellum and brainstem are intact. Old lacunar type infarct in the right midline rj. The 4th ventricle is midline. The cerebellopontine angle is unremarkable. EXTRACRANIAL: The visualized portion of the orbits is intact. SKULL: The calvaria is intact. No evidence of skull fracture. CONCLUSION: 1. Chronic changes with moderately severe but symmetric cortical atrophy and a right para midline lac unar type infarct in the rj. 2. Nothing acute Lupillo Oquendo MD on March 12, 2018 at 16:09 Board Certified Radiologist. This report was verified electronically.
[2018-03-12] MEDS ORDERED: SODIUM CHLORID 0.9% 500 ML INJ 500 ML IV ONE (16:15)
[2018-03-12 16:22] VITALS: BP 144/65; PULSE 97; RESP 16; O2SAT 99
[2018-03-12 16:27] LABS: BILIRUBIN, URINE NEG (NEG); BLOOD, URINE MOD (NEG); GLUCOSE,URINE NEG (NEG); KETONE, URINE 10 mg/dL (NEG); MUCUS URINE FEW /lpf (OCC); NITRITE,URINE NEG (NEG); SQUAMOUS EPITHELIAL CELL URINE <1 /hpf (0-5); URINE COLOR LIGHT-YELLOW (YELLW/STRAW); URINE LEUKOCYTE ESTERASE NEG (NEG)
[2018-03-12] MEDS ORDERED: SODIUM CHLORIDE 0.9% FLUSH 10 ML FLUSH IV FLUSH PRN (17:00)
--- NOTE | 2018-03-12 17:01 | HHI.HP ---
HPI Service [facility] Hospitalists Primary Care Physician Frankie Mtz MD Admission Diagnosis AMS, hx of recent CVA Chief Complaint: AMS Travel History International Travel<30 Days: No Contact w/Intl Traveler <30 Da: No Traveled to Known Affected Are: No History of Present Illness Mrs. Valentine is an 82 y/o WF with recent history of CVA in 10/2017, hypertension, hyperlipidemia, hypothyroidism and hx of CAD. Pt presented to the ED at [facility] on for AMS. Pts provides the history as the pt is rather agitated and a difficult historian. Her reports that after the pts stroke in October 2017 that she has been more easily agitated but otherwise has been at her baseline mental status. Then 2 days ago the pt started becoming increasingly confused and agitated and was reportedly hallucinating and seeing people or objects in her house that weren't there. EVAC was called and her reports that the pt was able to answer the medics questions fairly appropriately and was not brought into the ED. There were similar episodes yesterday and then again today. The pts has home health care nurses come out to the house and one came today and she was concerned about possible stroke as she reported some discoordination of the left upper extremity. There has not been any reported slurred speech or difficulty swallowing. In the ED pt received IM Haldol and Ativan for agitation. There is been no reported fevers, chills. She she does have a family history of Alzheimer's disease. Head CT in the ER noted chronic changes with moderately severe but symmetric cortical atrophy and a right para midline lacunar type infarct in the rj, nothing acute. Her labs noted a hemolyzed potassium. Her renal function appears to be slightly higher then baseline CKD. Her urine is reportedly dark and UA is pending. Pts is requesting Psych consultation. Pts previous MRI in October 2017 noted a 3.7cm infarct in the right MCA distribution with mild associated enhancement postcontrast, subcentimeter infarct left MCA distribution peripherally and remote lacunar infarct in the cerebellum. Pt was placed on ASA following that admission. Review of Systems ROS Limitations: Altered Mental Status, Poor Historian Past Family Social History Past Medical History Recent CVA in 10/2017 HTN Hyperlipidemia Hypothyroidism Hx of CAD Hx of anemia CKD, stage 3 Macular degeneration, pt is legally blind Arthritis Osteoporosis Past Surgical History CABG x 4 in 2002 Cardiac stenting x 4 after bypass surgery Cholecystectomy Tonsillectomy Reported Medications Aspirin EC 325 Mg PO DAILY Ferrous Sulfate 325 Mg PO HS Vitamin D3 1,000 Units PO BID Vitamin B-12 1,500 Mcg PO HS Levothyroxine (Levothyroxine Sodium) 88 Mcg PO DAILY Take 1 tab (88mcg) daily except Sundays (44mcg) Metoprolol Tartrate 25 Mg PO BID Crestor 20 Mg PO HS Allergies: Coded Allergies: Sulfa (Sulfonamide Antibiotics) (Verified Allergy, Severe, NAUSEA, 03/12/18 ) codeine (Verified Allergy, Severe, NAUSEA, 03/12/18) penicillin G (Verified Allergy, Severe, NAUSEA, 03/12/18) propoxyphene (Verified Allergy, Unknown, 03/12/18) Family History Father with hx of Alzheimer's dementia Social History No reported tobacco use Occasional alcohol use Pt lives with Physical Exam Vital Signs Vital Signs Date Time Temp Pulse Resp B/P (MAP) Pulse Ox O2 Delivery O2 Flow Rate FiO2 03/12/18 16:22 97 16 144/65 (91) 99 Room Air 03/12/18 14:06 98.1 03/12/18 14:03 98 15 167/79 (108) 100 Room Air 03/12/18 14:03 98 15 100 Room Air 03/12/18 13:55 98 15 167/79 (108) 100 03/12/18 13:55 98 15 167/79 (108) 100 Room Air Physical Exam GENERAL: Thin elderly female, agitated. SKIN: No rashes, ecchymoses or lesions. Cool and dry. HEENT: Atraumatic. Normocephalic. No temporal or scalp tenderness. No scleral icterus. Airway patent. NECK: Trachea midline, supple, nontender. CARDIO: Regular. RESP: CTA bilaterally. No wheezes, rales, or rhonchi. ABD: +BS, soft, non-tender, nondistended. EXT: Extremities without clubbing, cyanosis, or edema. NEURO: Awake and alert. Agitated. [place]. Non-cooperative. Normal speech. Laboratory Laboratory Tests Test 03/12/18 14:30 03/12/18 15:14 White Blood Count 7.7 Red Blood Count 3.63 Hemoglobin 11.9 Hematocrit 36.4 Mean Corpuscular Volume 100.2 Mean Corpuscular Hemoglobin 32.8 Mean Corpuscular Hemoglobin Concent 32.8 Red Cell Distribution Width 13.3 Platelet Count 210 Mean Platelet Volume 9.2 Neutrophils (%) (Auto) 79.9 Lymphocytes (%) (Auto) 12.7 Monocytes (%) (Auto) 6.8 Eosinophils (%) (Auto) 0.1 Basophils (%) (Auto) 0.5 Neutrophils # (Auto) 6.1 Lymphocytes # (Auto) 1.0 Monocytes # (Auto) 0.5 Eosinophils # (Auto) 0.0 Basophils # (Auto) 0.0 CBC Comment DIFF FINAL Differential Comment Blood Urea Nitrogen 45 Creatinine 1.53 Random Glucose 73 Total Protein 7.4 Albumin 3.7 Calcium Level 9.4 Alkaline Phosphatase 108 Aspartate Amino Transf (AST/SGOT) 44 Alanine Aminotransferase (ALT/SGPT) 20 Total Bilirubin 0.6 Sodium Level 143 Potassium Level 6.4 Chloride Level 113 Carbon Dioxide Level 16.0 Anion Gap 14 Estimat Glomerular Filtration Rate 33 Total Creatine Kinase 186 Creatine Kinase MB 4.7 Troponin I LESS THAN 0.02 Thyroid Stimulating Hormone 3rd Gen 0.979 Urine Color LIGHT-YELLOW Urine Turbidity CLEAR Urine pH 6.0 Urine Specific [place] 1.015 Urine Protein 300 Urine Glucose (UA) NEG Urine Ketones 10 Urine Occult Blood MOD Urine Nitrite NEG Urine Bilirubin NEG Urine Urobilinogen LESS THAN 2.0 Urine Leukocyte Esterase NEG Urine RBC 1 Urine WBC 1 Urine Squamous Epithelial Cells <1 Urine Mucus FEW Microscopic Urinalysis Comment CULT NOT INDICATED Result Diagram: 03/12/18 1430 03/12/18 1430 Imaging Last Impressions Head CT 03/12/18 1343 Signed Impressions: Service Date/Time: February 15:43 - CONCLUSION: 1. Chronic changes with moderately severe but symmetric cortical atrophy and a right para midline lacunar type infarct in the rj. 2. Nothing acute Lupillo Oquendo MD Chest X-Ray 03/12/18 1343 Signed Impressions: Service Date/Time: February 14:15 - CONCLUSION: No acute disease. MD Demar Maldonado VTE Risk Assessment Demar VTE Risk Assessment: Mod/High Risk (score >= 2) Caprini Risk Assessment Model Point Value = 1 Point Value = 2 Point Value = 3 Point Value = 5 Age 41-60 Minor surgery BMI > 25 kg/m2 Swollen legs Varicose veins or History of unexplained or recurrent spontaneous Oral contraceptives or hormone replacement Sepsis (< 1 month) Serious lung disease, including pneumonia (< 1 month) Abnormal pulmonary function Acute myocardial infarction Congestive heart failure (< 1 month) History of inflammatory bowel disease Medical patient at bed rest Age 61-74 Arthroscopic surgery Major open surgery (> 45 min) Laparoscopic surgery (> 45 min) Malignancy Confined to bed (> 72 hours) Immobilizing plaster cast Central venous access Age >= 75 History of VTE Family history of VTE Factor V Leiden Prothrombin [id number] Lupus anticoagulant Anticardiolipin antibodies Elevated serum homocysteine Heparin-induced thrombocytopenia Other congenital or acquired thrombophilia Stroke (< 1 month) Elective arthroplasty Hip, pelvis, or leg fracture Acute spinal cord injury (< 1 month) Prophylaxis Regimen Total Risk Factor Score Risk Level Prophylaxis Regimen 0-1 Low Early ambulation 2 Moderate Order ONE of the following: *Sequential Compression Device (SCD) *Heparin 5000 units SQ BID 3-4 Higher Order ONE of the following medications: *Heparin 5000 units SQ TID *Enoxaparin/Lovenox 40 mg SQ daily (WT < 150 kg, CrCl > 30 mL/min) *Enoxaparin/Lovenox 30 mg SQ daily (WT < 150 kg, CrCl > 10-29 mL/min) *Enoxaparin/Lovenox 30 mg SQ BID (WT < 150 kg, CrCl > 30 mL/min) AND/OR *Sequential Compression Device (SCD) 5 or more Highest Order ONE of the following medications: *Heparin 5000 units SQ TID (Preferred with Epidurals) *Enoxaparin/Lovenox 40 mg SQ daily (WT < 150 kg, CrCl > 30 mL/min) *Enoxaparin/Lovenox 30 mg SQ daily (WT < 150 kg, CrCl > 10-29 mL/min) *Enoxaparin/Lovenox 30 mg SQ BID (WT < 150 kg, CrCl > 30 mL/min) AND *Sequential Compression Device (SCD) Assessment and Plan Problem List: (1) Altered mental status ICD Codes: R41.82 - Altered mental status, unspecified Status: Acute Plan: AMS Hx of recent CVA at multiple sites - Pt is an 82 y/o WF with recent history of CVA in 10/2017, hypertension, hyperlipidemia, hypothyroidism and hx of CAD. - Pt presented to the ED at [facility] on 03/12/18 for AMS. Her reports that after the pts stroke in October 2017 that she has been more easily agitated but otherwise has been at her baseline mental status. Then 2 days ago the pt started becoming increasingly confused and agitated and was reportedly hallucinating and seeing people or objects in her house that weren't there. There has not been any reported slurred speech or difficulty swallowing. In the ED pt received IM Haldol and Ativan for significant agitation. There is been no reported fevers, chills. She she does have a family history of Alzheimer's disease. - Head CT in the ER noted chronic changes with moderately severe but symmetric cortical atrophy and a right para midline lacunar type infarct in the rj, nothing acute. - Her labs noted a hemolyzed potassium. Her renal function appears to be slightly higher then baseline CKD. Her urine is reportedly dark and UA is pending. - Pts AMS may be related to a new CVA vs. vascular dementia related to previous CVA and chronic vascular disease vs. UTI vs. metabolic causes vs. other - Pts is requesting Psych consultation. - Pts previous MRI in October 2017 noted a 3.7cm infarct in the right MCA distribution with mild associated enhancement postcontrast, subcentimeter infarct left MCA distribution peripherally and remote lacunar infarct in the cerebellum. Pt was placed on ASA following that admission. - Recheck BMP - TSH in the ED was 0.979. Check T4 - Check MRI brain - Previous MRA neck in October 2017 was unremarkable - 2D echo (10/30/17) --> EF 50%, mild mitral annular thickening, trace mitral regurg, mild aortic sclerosis, mild tricuspid regurg, PA pressure 32.1mmHg - Give IVF - Swallow evaluation - Cont. ASA - Permissive HTN for now, if no new stroke resume Metoprolol - Telemetry - We will start Seroquel 25mg po BID and Ativan 1mg IV PRN for agitation - PT evaluation in AM - Discussed code status with the pts and he reports that she is a DNR BETH on CKD, stage 3 - Give IVF - Recheck labs in AM HTN - Hold home meds for now - Clonidine PRN Hyperlipidemia - Resume home meds Hypothyroidism - Resume home meds (2) CVA (cerebral vascular accident) ICD Codes: I63.9 - Cerebral infarction, unspecified Status: Chronic (3) Hypothyroidism ICD Codes: E03.9 - Hypothyroidism, unspecified Status: Chronic (4) Hyperlipidemia ICD Codes: E78.5 - Hyperlipidemia, unspecified Status: Chronic (5) CKD (chronic kidney disease) stage 3, GFR 30-59 ml/min ICD Codes: N18.3 - Chronic kidney disease, stage 3 (moderate) Status: Chronic (6) Hypertension ICD Codes: I10 - Essential (primary) hypertension Status: Chronic Physician Certification 2 Midnight Certification Type: Admission for Inpatient Services Order for Inpatient Services The services are ordered in accordance with Medicare regulations or non- Medicare payer requirements, as applicable. In the case of services not specified as inpatient-only, they are appropriately provided as inpatient services in accordance with the 2-midnight benchmark. Estimated LOS (days): 3 3 days is the estimated time the patient will need to remain in the hospital, assuming treatment plan goals are met and no additional complications. Post-Hospital Plan: Not yet determined Lorena Bowling March 12, 2018 17:01
[2018-03-12] MEDS ORDERED: LEVO88TA2 PO ×2 (17:12)
[2018-03-12] MEDS ORDERED: ONDANSETRON HCL 4 MG/2 ML VIAL IV PRN (17:30)
[2018-03-12] MEDS ORDERED: cloNIDine HCL 0.1 MG TAB PO PRN (17:30)
[2018-03-12] MEDS: SODIUM CHLOR 0.9% 1000 ML INJ 1,000 ML IV SCH (19:06)
--- NOTE | 2018-03-12 19:06 | RADRPT ---
EXAM DATE/TIME: 03/12/2018 18:03 [facility] COMPARISON: MRI BRAIN W & W/O CONTRAST, October 30, 2017, 11:30. CT BRAIN W/O CONTRAST, March 12, 2018, 15:43. INDICATIONS : CVA. Confusion. MEDICAL HISTORY : Renal insufficiency, chronic. SURGICAL HISTORY : CABG Cholecystectomy. Coronary artery stent. ENCOUNTER: Initial ACUITY: 1 day PAIN SCORE: 0/10 LOCATION: Head. TECHNIQUE: Multiplanar, multisequence MRI of the brain was performed without contrast. FINDINGS: CEREBRUM: The ventricles are mildly widened. Cortical sulci are widened. There is expansion of the extra-axial spaces. There is an evolving area infarction seen in the right posterior frontal lobe. More acute ch anges were seen on the prior MRI examination. No evidence of midline shift, mass lesion, hemorrhage o r acute infarction. No focal extraaxial fluid collections are seen. The pituitary gland and suprase llar cistern are normal in configuration. WHITE MATTER: There are scattered focal areas of signal abnormality seen in the white matter. POSTERIOR FOSSA: There are some linear areas of encephalomalacia seen at the right cerebellar hemisphere. These were p resent previously and are unchanged. There appears to be an old lacunar infarct at the medial right s nichol of the rj. This was present on the prior exam. The cerebellum and brainstem are otherwise intac t. The 4th ventricle is midline. The cerebellopontine angle is unremarkable. The cerebellar tonsils are normal in position. DIFFUSION IMAGING: No focal areas of restricted diffusion are seen. No evidence of acute infarction. EXTRACRANIAL: The visualized portions of the orbits and paranasal sinuses are unremarkable. On the first inferior m ost image of the flair T2 images, there is a focal area of bright signal at the anterior right thecal sac region at the level of C2. This likely represents an artifact as this area appears normal on all the other sequences where this area was imaged. CONCLUSION: 1. No acute abnormality is seen. 2. Age-related atrophy. 3. Evidence of prior insults at the right frontal lobe, medial right rj, and the right cerebellar h emisphere. 4. Scattered mild suspected small vessel ischemic change in the white matter. Dre Cain MD on March 12, 2018 at 18:56 Board Certified Radiologist. This report was verified electronically.
[2018-03-12 20:00] VITALS: BP 179/92; PULSE 97; RESP 18; TEMP 98.4; O2SAT 98
[2018-03-12] MEDS: QUEtiapine FUMARATE 25 MG TAB PO SCH (20:26)
[2018-03-12] MEDS: ATORVASTATIN 40 MG TAB PO SCH (20:26)
[2018-03-12] MEDS: FERROUS SULFATE 325 MG (65 MG ELEMENTAL IRON) TAB PO SCH (20:26)
[2018-03-12] MEDS: SODIUM CHLORIDE 0.9% FLUSH 10 ML FLUSH IV FLUSH SCH (20:27)
[2018-03-12] MEDS ORDERED: METOPROLOL TARTRATE 25 MG TAB PO SCH (21:00)
[2018-03-13] VITALS (9 sets, daily range): BP systolic 138–171; BP diastolic 61–88; PULSE 70–107; RESP 17–19; TEMP 97.2–98.4; O2SAT 96–100
[2018-03-13] MEDS: SODIUM CHLOR 0.9% 1000 ML INJ 1,000 ML IV SCH (03:39)
[2018-03-13 04:39] LABS: AUTOMATED NEUTROPHIL # 5.3 TH/MM3 (1.8-7.7); BASOPHIL % 0.4 % (0.0-2.0); EOSINOPHIL % 0.2 % (0.0-4.0); HEMOGLOBIN 10.8 GM/DL (11.6-15.3); LYMPH % 15.6 % (9.0-44.0); LYMPHOCYTE # 1.1 TH/MM3 (1.0-4.8); MEAN CELL VOLUME 101.8 FL (80.0-100.0); MEAN CORPUSCULAR HEMOGLOBIN 33.3 PG (27.0-34.0); MEAN CORPUSCULAR HGB CONC 32.7 % (32.0-36.0); MEAN PLATELET VOLUME 9.2 FL (7.0-11.0); MONO % 9.4 % (0.0-8.0); MONOCYTE # 0.7 TH/MM3 (0-0.9); NEUT % 74.4 % (16.0-70.0); PLATELET COUNT 172 TH/MM3 (150-450); RED BLOOD COUNT 3.25 MIL/MM3 (4.00-5.30); RED CELL DISTRIBUTION WIDTH 13.6 % (11.6-17.2); WHITE BLOOD COUNT 7.1 TH/MM3 (4.0-11.0)
[2018-03-13 05:10] LABS: CALCIUM 8.8 MG/DL (8.5-10.1); CREATININE 1.39 MG/DL (0.50-1.00); MAGNESIUM 1.8 MG/DL (1.5-2.5)
[2018-03-13 05:21] LABS: FREE T3 1.38 PG/ML (2.18-3.98); FREE T4 1.06 NG/DL (0.76-1.46)
[2018-03-13] MEDS: DEXT 5%-NACL 0.45% 1000 ML INJ 1,000 ML IV SCH ×2 (06:00→11:59)
[2018-03-13] MEDS: LEVOTHYROXINE SODIUM 88 MCG TAB PO SCH (06:27)
[2018-03-13] MEDS: QUEtiapine FUMARATE 25 MG TAB PO SCH ×2 (07:51→20:25)
[2018-03-13] MEDS: ASPIRIN EC 325 MG TABEC PO SCH (07:51)
[2018-03-13] MEDS: SODIUM CHLORIDE 0.9% FLUSH 10 ML FLUSH IV FLUSH SCH ×2 (07:53→20:25)
[2018-03-13] MEDS: METOPROLOL TARTRATE 25 MG TAB PO SCH ×2 (09:00→20:25)
--- NOTE | 2018-03-13 09:20 | HHI.PR ---
Subjective Remarks Pt lying in bed, somewhat agitated, confused Nurse reports some agitation overnight but did not require any Ativan Pt with some sinus tach this morning, HR in the 110-120s Objective Vitals Vital Signs Date Time Temp Pulse Resp B/P (MAP) Pulse Ox O2 Delivery O2 Flow Rate FiO2 03/13/18 07:49 98.0 92 19 150/72 (98) 100 03/13/18 04:00 98.3 95 18 138/65 (89) 96 03/13/18 00:00 98.4 107 18 144/88 (106) 97 03/12/18 20:00 98.4 97 18 179/92 (121) 98 03/12/18 16:22 97 16 144/65 (91) 99 Room Air 03/12/18 14:06 98.1 03/12/18 14:03 98 15 167/79 (108) 100 Room Air 03/12/18 14:03 98 15 100 Room Air 03/12/18 13:55 98 15 167/79 (108) 100 03/12/18 13:55 98 15 167/79 (108) 100 Room Air Result Diagram: 03/13/18 0355 03/13/18 0355 Other Results Laboratory Tests Test 03/12/18 14:30 03/12/18 15:14 03/13/18 03:55 White Blood Count 7.7 TH/MM3 7.1 TH/MM3 Red Blood Count 3.63 MIL/MM3 3.25 MIL/MM3 Hemoglobin 11.9 GM/DL 10.8 GM/DL Hematocrit 36.4 % 33.0 % Mean Corpuscular Volume 100.2 FL 101.8 FL Mean Corpuscular Hemoglobin 32.8 PG 33.3 PG Mean Corpuscular Hemoglobin Concent 32.8 % 32.7 % Red Cell Distribution Width 13.3 % 13.6 % Platelet Count 210 TH/MM3 172 TH/MM3 Mean Platelet Volume 9.2 FL 9.2 FL Neutrophils (%) (Auto) 79.9 % 74.4 % Lymphocytes (%) (Auto) 12.7 % 15.6 % Monocytes (%) (Auto) 6.8 % 9.4 % Eosinophils (%) (Auto) 0.1 % 0.2 % Basophils (%) (Auto) 0.5 % 0.4 % Neutrophils # (Auto) 6.1 TH/MM3 5.3 TH/MM3 Lymphocytes # (Auto) 1.0 TH/MM3 1.1 TH/MM3 Monocytes # (Auto) 0.5 TH/MM3 0.7 TH/MM3 Eosinophils # (Auto) 0.0 TH/MM3 0.0 TH/MM3 Basophils # (Auto) 0.0 TH/MM3 0.0 TH/MM3 CBC Comment DIFF FINAL DIFF FINAL Differential Comment Blood Urea Nitrogen 45 MG/DL 43 MG/DL Creatinine 1.53 MG/DL 1.39 MG/DL Random Glucose 73 MG/DL 60 MG/DL Total Protein 7.4 GM/DL Albumin 3.7 GM/DL Calcium Level 9.4 MG/DL 8.8 MG/DL Alkaline Phosphatase 108 U/L Aspartate Amino Transf (AST/SGOT) 44 U/L Alanine Aminotransferase (ALT/SGPT) 20 U/L Total Bilirubin 0.6 MG/DL Sodium Level 143 MEQ/L 149 MEQ/L Potassium Level 6.4 MEQ/L 4.3 MEQ/L Chloride Level 113 MEQ/L 117 MEQ/L Carbon Dioxide Level 16.0 MEQ/L 18.0 MEQ/L Anion Gap 14 MEQ/L 14 MEQ/L Estimat Glomerular Filtration Rate 33 ML/MIN 36 ML/MIN Total Creatine Kinase 186 U/L Creatine Kinase MB 4.7 NG/ML Troponin I LESS THAN 0.02 NG/ML Thyroid Stimulating Hormone 3rd Gen 0.979 uIU/ML Urine Color LIGHT-YELLOW Urine Turbidity CLEAR Urine pH 6.0 Urine Specific [place] 1.015 Urine Protein 300 mg/dL Urine Glucose (UA) NEG mg/dL Urine Ketones 10 mg/dL Urine Occult Blood MOD Urine Nitrite NEG Urine Bilirubin NEG Urine Urobilinogen LESS THAN 2.0 MG/DL Urine Leukocyte Esterase NEG Urine RBC 1 /hpf Urine WBC 1 /hpf Urine Squamous Epithelial Cells <1 /hpf Urine Mucus FEW /lpf Microscopic Urinalysis Comment CULT NOT INDICATED Magnesium Level 1.8 MG/DL Free Thyroxine 1.06 NG/DL Free Triiodothyronine (T3) pg/dL 1.38 PG/ML Imaging Last Impressions Head CT 03/12/18 1343 Signed Impressions: Service Date/Time: February 15:43 - CONCLUSION: 1. Chronic changes with moderately severe but symmetric cortical atrophy and a right para midline lacunar type infarct in the rj. 2. Nothing acute Lupillo Oquendo MD Chest X-Ray 5/17/18 1343 Signed Impressions: Service Date/Time: February 14:15 - CONCLUSION: No acute disease. Justin Fletcher MD Brain MRI 03/12/18 0000 Signed Impressions: Service Date/Time: , March 12, 2018 18:03 - CONCLUSION: 1. No acute abnormality is seen. 2. Age-related atrophy. 3. Evidence of prior insults at the right frontal lobe, medial right rj, and the right cerebellar hemisphere. 4. Scattered mild suspected small vessel ischemic change in the white matter. Dre Cain MD Last Impressions Head CT 03/12/18 1343 Signed Impressions: Service Date/Time: , March 12, 2018 15:43 - CONCLUSION: 1. Chronic changes with moderately severe but symmetric cortical atrophy and a right para midline lacunar type infarct in the rj. 2. Nothing acute Lupillo Oquendo MD Chest X-Ray 03/12/18 1343 Signed Impressions: Service Date/Time: February 14:15 - CONCLUSION: No acute disease. Justin Fletcher MD Objective Remarks General: Awakens slowly, somewhat agitated and fidgeting with the blankets in bed Chest: CTA Cardiac: Tachy, regular Abd: +BS, soft ND/NT Ext: No edema A/P Problem List: (1) Altered mental status ICD Codes: R41.82 - Altered mental status, unspecified Status: Acute Plan: AMS Hx of recent CVA at multiple sites - Pt is an 82 y/o WF with recent history of CVA in 10/2017, hypertension, hyperlipidemia, hypothyroidism and hx of CAD. - [place] [facility] [place]. Her reports that after the pts stroke in October 2017 that she has been more easily agitated but otherwise has been at her baseline mental status. Then 2 days ago the pt started becoming increasingly confused and agitated and was reportedly hallucinating and seeing people or objects in her house that weren't there. There has not been any reported slurred speech or difficulty swallowing. In the ED pt received IM Haldol and Ativan for significant agitation. There is been no reported fevers, chills. She she does have a family history of Alzheimer's disease. - Head CT in the ER noted chronic changes with moderately severe but symmetric cortical atrophy and a right para midline lacunar type infarct in the rj, nothing acute. - Her labs noted a hemolyzed potassium. Her renal function appears to be slightly higher then baseline CKD. Her urine is reportedly dark and UA is pending. - Pts AMS may be related to vascular dementia related to previous CVA and chronic vascular disease vs. metabolic causes vs. other - Pts is requesting Psych consultation. - Pts previous MRI in October 2017 noted a 3.7cm infarct in the right MCA distribution with mild associated enhancement postcontrast, subcentimeter infarct left MCA distribution peripherally and remote lacunar infarct in the cerebellum. Pt was placed on ASA following that admission. - TSH was 0.979. T4 was 1.06 - MRI brain (03/12) -->No acute abnormality is seen. Age-related atrophy. Evidence of prior insults at the right frontal lobe, medial right rj, and the right cerebellar hemisphere. Scattered mild suspected small vessel ischemic change in the white matter. - Previous MRA neck in October 2017 was unremarkable - 2D echo (10/30/17) --> EF 50%, mild mitral annular thickening, trace mitral regurg, mild aortic sclerosis, mild tricuspid regurg, PA pressure 32.1mmHg - UA was negative for infection - Give IVF - Cont. ASA - Resume Metoprolol - Telemetry - Pt started on Seroquel 25mg po BID and Ativan 1mg IV PRN for agitation - PT evaluation this AM - Discussed code status with the pts and he reports that she is a DNR BETH on CKD, stage 3 - IVF - Recheck labs in AM HTN - Metoprolol resumed thsi morning, pt with some sinus tachycardia. No noted A. fib on telemetry - Clonidine PRN Hyperlipidemia - Resume home meds Hypothyroidism - Resume home meds (2) CVA (cerebral vascular accident) ICD Codes: I63.9 - Cerebral infarction, unspecified Status: Chronic (3) Hypothyroidism ICD Codes: E03.9 - Hypothyroidism, unspecified Status: Chronic (4) Hyperlipidemia ICD Codes: E78.5 - Hyperlipidemia, unspecified Status: Chronic (5) CKD (chronic kidney disease) stage 3, GFR 30-59 ml/min ICD Codes: N18.3 - Chronic kidney disease, stage 3 (moderate) Status: Chronic (6) Hypertension ICD Codes: I10 - Essential (primary) hypertension Status: Chronic Assessment and Plan Patient examined. Assessment and plan formulated with Lorena Bowling PA-C. I agree with the above. recent extensive bilateral ischemia cva's in October. Steady decline mentally since with more agitation, and now reports of hallucination and delirium per . could be vascular type dementia/agitation. currently no infection or metabolic issue on admission overnight did have hypernatremia and hypoglycemia not initially present on admission. on d51/2ns. monitor bg. f/u pending labs. on seroquel. sleepy. might need to lower. appreciate psychiatry input. PT eval. might need snf. dnr per . Lorena Bowling March 13, 2018 09:20 Ignacio Mora MD March 13, 2018 13:28
--- NOTE | 2018-03-13 14:37 | PD.PSY.CON ---
Provisional Diagnosis Admission Date March 12, 2018 at 16:21 Hope I. Unspecified psychosis History of Present Illness Service Psychiatry Consult Requested By Medicine Reason for Consult Visual hallucination Primary Care Physician Frankie Mtz MD HPI The patient is a 82-year-old woman, domiciled with her , without no documented or reported psychiatric history, recent history of CVA in 10/2017, hypertension, hyperlipidemia, hypothyroidism and hx of CAD. [place] [facility] [place]. Pts provides the history as the pt is rather agitated and a difficult historian. Her reported initially to medical team that after the pts stroke in October 2017 that she has been more easily agitated but otherwise has been at her baseline mental status. Then 2 days ago the pt started becoming increasingly confused and agitated and was reportedly hallucinating and seeing people or objects in her house that weren't there. EVAC was called and her reports that the pt was able to answer the medics questions fairly appropriately and was not brought into the ED. There were similar episodes yesterday and then again today. The pts has home health care nurses come out to the house and one came today and she was concerned about possible stroke as she reported some discoordination of the left upper extremity. There has not been any reported slurred speech or difficulty swallowing. In the ED pt received IM Haldol and Ativan for agitation. There is been no reported fevers, chills. She she does have a family history of Alzheimer's disease. Head CT in the ER noted chronic changes with moderately severe but symmetric cortical atrophy and a right para midline lacunar type infarct in the rj, nothing acute. Her labs noted a hemolyzed potassium. Her renal function appears to be slightly higher then baseline CKD. Her urine is reportedly dark and UA is pending. Pts is requesting Psych consultation. Pts previous MRI in October 2017 noted a 3.7cm infarct in the right MCA distribution with mild associated enhancement postcontrast, subcentimeter infarct left MCA distribution peripherally and remote lacunar infarct in the cerebellum. The patient was consulted to psychiatry due to increase agitation and visual hallucinations. I try to get collateral information from her Gabriel Valentine, , but he did not answer. On the psychiatric evaluation the patient was too sedated to provide information to complete the psychiatric assessment. She could not answer any of my questions. However I discussed widely with primary medical team the concern of perceptual disturbances. Apparently, the patient has being having increased visual hallucinations, seems to be anxiety provoking, insightless. Patient has been seeing people coming in and out of her house. Perceptual disturbances to be new onset. At baseline the patient seems to be quite lucid and without gross cognitive impairment. Past Family Social History Coded Allergies: Sulfa (Sulfonamide Antibiotics) (Verified Allergy, Severe, NAUSEA, 03/12/18 ) codeine (Verified Allergy, Severe, NAUSEA, 03/12/18) penicillin G (Verified Allergy, Severe, NAUSEA, 03/12/18) propoxyphene (Verified Allergy, Unknown, 03/12/18) Active Scripts Aspirin DR (Aspirin EC) 325 Mg Tabdr, 325 MG PO DAILY for Stroke Prevention MDD 325 for 30 Days, #30 TAB Prov:Foster Lagos MD 10/30/17 Reported Medications Levothyroxine (Levothyroxine) 88 Mcg Tab, 44 MCG PO FRIDAY for Thyroid, #30 TAB 0 Refills 03/12/18 Levothyroxine (Levothyroxine) 88 Mcg Tab, 88 MCG PO MoTuWeThFrSa for Thyroid, # 30 TAB 0 Refills 03/12/18 Ferrous Sulfate (Ferrous Sulfate) 325 Mg (65 Mg Iron) Tablet, 325 MG PO HS for Nutritional Supplement, #60 TAB 0 Refills 03/12/18 Cholecalciferol (Vitamin D3) 1,000 Unit Tab, 1000 UNITS PO BID for Nutritional Supplement, #1 BOTTLE 0 Refills 03/12/18 Cyanocobalamin (Vitamin B-12) 1,000 Mcg Tab, 1500 MCG PO HS for Nutritional Supplement, #1 BOTTLE 0 Refills 03/12/18 Metoprolol Tartrate (Metoprolol Tartrate) 25 Mg Tab, 25 MG PO BID, #60 TAB 0 Refills 03/12/18 Rosuvastatin (Crestor) 20 Mg Tab, 20 MG PO HS for Cholesterol Management, #30 TAB 0 Refills 10/29/17 Discontinued Reported Medications Acetaminophen (Tylenol) 325 Mg Tab, 650 MG PO Q4H Y for PAIN SCALE 1 TO 10, TAB 0 Refills 10/29/17 Levothyroxine (Levothyroxine) 88 Mcg Tab, 88 MCG PO DAILY for Thyroid, #30 TAB 0 Refills 10/29/17 Metoprolol Tartrate (Lopressor) 50 Mg Tab, 25 MG PO BID, #30 TAB 0 Refills 10/29/17 Current Medications Medications (Trade) Dose Ordered Sig/Yasmani Route Start Time Stop Time Status Last Admin (SEROquel) 25 mg BID PO 03/12/18 21:00 03/13/18 07:51 (Ativan Inj) 1 mg Q4H PRN IV PUSH 03/12/18 17:00 (Ecotrin Ec) 325 mg DAILY PO 03/13/18 09:00 03/13/18 07:51 (Ferrous Sulfate) 325 mg HS PO 03/12/18 21:00 03/12/18 20:26 (Lipitor) 40 mg HS PO 03/12/18 21:00 03/12/18 20:26 (NS Flush) 2 ml BID IV FLUSH 03/12/18 21:00 (NS Flush) 2 ml UNSCH PRN IV FLUSH 03/12/18 17:00 (Synthroid) 44 mcg Avalos PO 03/15/18 06:00 (Synthroid) 88 mcg MoTuWeThFrSa PO 03/13/18 06:00 03/13/18 06:27 (Catapres) 0.1 mg Q6H PRN PO 03/12/18 17:30 (Tylenol) 650 mg Q4H PRN PO 03/12/18 17:30 (Zofran Inj) 4 mg Q6H PRN IV 03/12/18 17:30 Dextrose/Sodium Chloride 1,000 ml @ 84 mls/hr [id number] IV 03/13/18 06:15 03/13/18 11:59 (Lopressor) 25 mg Q12HR PO 03/13/18 09:00 03/13/18 09:00 Physical Exam Vital Signs Vital Signs Date Time Temp Pulse Resp B/P (MAP) Pulse Ox O2 Delivery O2 Flow Rate FiO2 03/13/18 12:00 97.3 75 18 143/61 (88) 99 03/12/18 16:22 Room Air I/O 03/13/18 03/13/18 03/14/18 08:00 16:00 00:00 Intake Total 1150 ml Balance 1150 ml Lab Results Test 03/12/18 14:30 03/12/18 15:14 03/13/18 03:55 03/13/18 13:08 White Blood Count 7.7 TH/MM3 7.1 TH/MM3 Red Blood Count 3.63 MIL/MM3 3.25 MIL/MM3 Hemoglobin 11.9 GM/DL 10.8 GM/DL Hematocrit 36.4 % 33.0 % Mean Corpuscular Volume 100.2 FL 101.8 FL Mean Corpuscular Hemoglobin 32.8 PG 33.3 PG Mean Corpuscular Hemoglobin Concent 32.8 % 32.7 % Red Cell Distribution Width 13.3 % 13.6 % Platelet Count 210 TH/MM3 172 TH/MM3 Mean Platelet Volume 9.2 FL 9.2 FL Neutrophils (%) (Auto) 79.9 % 74.4 % Lymphocytes (%) (Auto) 12.7 % 15.6 % Monocytes (%) (Auto) 6.8 % 9.4 % Eosinophils (%) (Auto) 0.1 % 0.2 % Basophils (%) (Auto) 0.5 % 0.4 % Neutrophils # (Auto) 6.1 TH/MM3 5.3 TH/MM3 Lymphocytes # (Auto) 1.0 TH/MM3 1.1 TH/MM3 Monocytes # (Auto) 0.5 TH/MM3 0.7 TH/MM3 Eosinophils # (Auto) 0.0 TH/MM3 0.0 TH/MM3 Basophils # (Auto) 0.0 TH/MM3 0.0 TH/MM3 CBC Comment DIFF FINAL DIFF FINAL Differential Comment Blood Urea Nitrogen 45 MG/DL 43 MG/DL Creatinine 1.53 MG/DL 1.39 MG/DL Random Glucose 73 MG/DL 60 MG/DL Total Protein 7.4 GM/DL Albumin 3.7 GM/DL Calcium Level 9.4 MG/DL 8.8 MG/DL Alkaline Phosphatase 108 U/L Aspartate Amino Transf (AST/SGOT) 44 U/L Alanine Aminotransferase (ALT/SGPT) 20 U/L Total Bilirubin 0.6 MG/DL Sodium Level 143 MEQ/L 149 MEQ/L Potassium Level 6.4 MEQ/L 4.3 MEQ/L Chloride Level 113 MEQ/L 117 MEQ/L Carbon Dioxide Level 16.0 MEQ/L 18.0 MEQ/L Anion Gap 14 MEQ/L 14 MEQ/L Estimat Glomerular Filtration Rate 33 ML/MIN 36 ML/MIN Total Creatine Kinase 186 U/L Creatine Kinase MB 4.7 NG/ML Troponin I LESS THAN 0.02 NG/ML Thyroid Stimulating Hormone 3rd Gen 0.979 uIU/ML Urine Color LIGHT-YELLOW Urine Turbidity CLEAR Urine pH 6.0 Urine Specific Antelope 1.015 Urine Protein 300 mg/dL Urine Glucose (UA) NEG mg/dL Urine Ketones 10 mg/dL Urine Occult Blood MOD Urine Nitrite NEG Urine Bilirubin NEG Urine Urobilinogen LESS THAN 2.0 MG/DL Urine Leukocyte Esterase NEG Urine RBC 1 /hpf Urine WBC 1 /hpf Urine Squamous Epithelial Cells <1 /hpf Urine Mucus FEW /lpf Microscopic Urinalysis Comment CULT NOT INDICATED Magnesium Level 1.8 MG/DL Free Thyroxine 1.06 NG/DL Free Triiodothyronine (T3) pg/dL 1.38 PG/ML Ammonia 32 MCMOL/L Mental Status Examination Mental Status Exam Remarks Limited due to the level of sedation, Assessment & Plan Problem List: (1) Unspecified psychosis ICD Codes: F29 - Unspecified psychosis not due to a substance or known physiological condition Assessment & Plan: On psychiatric evaluation today the patient cannot cooperate , she is too sedated to answer my questions. However, as per conversation with primary medical team and documentation review the patient has been presented new onset visual hallucinations of people coming in and out of her house. There is no reported auditory hallucinations. Patient apparently does not have any psychiatric history, even though no collateral information could not be obtained by her . The patient has been confused, disoriented, agitated and not at baseline. Usually visual hallucinations are never secondary to primary medical conditions, they are usually related with a structural brain damage, substance withdrawal, delirium due to underlying medical conditions or epileptogenic activity. There are also visual hallucinations that are related with blindness, such as Timothy Tommy syndrome. Collateral information from her is important to characterize the nature and potential etiologies of perceptual disturbances. head CT in the ER noted chronic changes with moderately severe but symmetric cortical atrophy and a right para midline lacunar type infarct in the rj. Agree with continuing Seroquel 25 mg twice daily. Haldol 1 mg IM/IV every 8 hours as needed aggressive behavior or severe agitation can also be used rather than Ativan, which usually worsen cognition and elevate the risk of falls. I will follow-up. Assessment & Plan Estimated LOS: Luis Miguel Montana MD March 13, 2018 14:37
--- NOTE | 2018-03-13 14:37 | EKG ---
Date Performed: 03/12/2018 Time Performed: 14:03:38 PTAGE: 82 years EKG: Sinus rhythm POSSIBLE LEFT ATRIAL ENLARGEMENT ST DEVIATION AND MODERATE T-WAVE ABNORMALITY, CONSIDER LATERAL ISCH EMIA ABNORMAL ECG INTERPRETATION BASED ON A DEFAULT AGE OF 42 YEARS PREVIOUS TRACING : 10/29/2017 16.13 Since the previous tracing, no significant change not ed DOCTOR: Maxi Paige Interpretating Date/Time 03/13/2018 14:33:51
[2018-03-13 14:59] LABS: ALBUMIN 3.4 GM/DL (3.4-5.0); AST (GOT) 31 U/L (15-37)
[2018-03-13 15:27] LABS: ALKALINE PHOSPHATASE 100 U/L (45-117); ALT (GPT) 20 U/L (10-53); DIRECT BILIRUBIN ADULT 0.1 MG/DL (0.0-0.2); FOLATE 19.6 NG/ML (3.1-17.5); INDIRECT BILIRUBIN 0.4 MG/DL (0.0-0.8); TOTAL BILIRUBIN ADULT 0.5 MG/DL (0.2-1.0); TOTAL PROTEIN 6.5 GM/DL (6.4-8.2)
[2018-03-13] MEDS: ATORVASTATIN 40 MG TAB PO SCH (20:25)
[2018-03-13] MEDS: FERROUS SULFATE 325 MG (65 MG ELEMENTAL IRON) TAB PO SCH (20:25)
[2018-03-14] VITALS (11 sets, daily range): BP systolic 129–154; BP diastolic 63–75; PULSE 59–76; RESP 17–18; TEMP 97.2–98.6; O2SAT 96–100
[2018-03-14] MEDS: DEXT 5%-NACL 0.45% 1000 ML INJ 1,000 ML IV SCH ×2 (01:59→18:00)
[2018-03-14] MEDS: LEVOTHYROXINE SODIUM 88 MCG TAB PO SCH (05:19)
[2018-03-14 08:30] LABS: AUTOMATED NEUTROPHIL # 4.8 TH/MM3 (1.8-7.7); BASOPHIL % 0.6 % (0.0-2.0); EOSINOPHIL # 0.3 TH/MM3 (0-0.4); EOSINOPHIL % 3.5 % (0.0-4.0); HEMATOCRIT 31.1 % (35.0-46.0); HEMOGLOBIN 10.3 GM/DL (11.6-15.3); LYMPH % 20.1 % (9.0-44.0); LYMPHOCYTE # 1.5 TH/MM3 (1.0-4.8); MEAN CELL VOLUME 101.2 FL (80.0-100.0); MEAN CORPUSCULAR HEMOGLOBIN 33.6 PG (27.0-34.0); MEAN CORPUSCULAR HGB CONC 33.2 % (32.0-36.0); MEAN PLATELET VOLUME 9.5 FL (7.0-11.0); MONO % 9.9 % (0.0-8.0); MONOCYTE # 0.7 TH/MM3 (0-0.9); NEUT % 65.9 % (16.0-70.0); PLATELET COUNT 163 TH/MM3 (150-450); RED BLOOD COUNT 3.07 MIL/MM3 (4.00-5.30); RED CELL DISTRIBUTION WIDTH 13.7 % (11.6-17.2); WHITE BLOOD COUNT 7.3 TH/MM3 (4.0-11.0)
[2018-03-14 08:48] LABS: BICARBONATE 21.3 MEQ/L (21.0-32.0); CALCIUM 8.4 MG/DL (8.5-10.1); CREATININE 1.2 MG/DL (0.50-1.00); MAGNESIUM 1.6 MG/DL (1.5-2.5)
[2018-03-14] MEDS: SODIUM CHLORIDE 0.9% FLUSH 10 ML FLUSH IV FLUSH SCH ×2 (09:00→20:43)
--- NOTE | 2018-03-14 09:14 | HHI.PR ---
Subjective Remarks pt is alert and oriented completely this AM trying to eat. no complaints Objective Vitals heart reg lung cta abd s/nt ext no edema blind bilaterally Vital Signs Date Time Temp Pulse Resp B/P (MAP) Pulse Ox O2 Delivery O2 Flow Rate FiO2 03/14/18 05:05 72 03/14/18 04:00 98.3 72 17 129/63 (85) 99 03/14/18 00:00 97.4 63 18 135/63 (87) 96 03/13/18 23:42 70 03/13/18 21:56 Room Air 03/13/18 20:00 98.1 78 18 171/74 (106) 98 03/13/18 19:46 84 03/13/18 15:25 97.2 73 17 156/67 (96) 98 03/13/18 12:00 97.3 75 18 143/61 (88) 99 03/13/18 09:51 93 Result Diagram: 03/14/18 0649 03/14/18 0649 Imaging Last Impressions Head CT 03/12/18 1343 Signed Impressions: Service Date/Time: February 15:43 - CONCLUSION: 1. Chronic changes with moderately severe but symmetric cortical atrophy and a right para midline lacunar type infarct in the rj. 2. Nothing acute Lupillo Oquendo MD Chest X-Ray 03/12/181342 Signed Impressions: Service Date/Time: February 14:15 - CONCLUSION: No acute disease. Justin Fletcher MD Brain MRI 03/12/18 0000 Signed Impressions: Service Date/Time: February 18:03 - CONCLUSION: 1. No acute abnormality is seen. 2. Age-related atrophy. 3. Evidence of prior insults at the right frontal lobe, medial right rj, and the right cerebellar hemisphere. 4. Scattered mild suspected small vessel ischemic change in the white matter. Dre Cain MD Last Impressions Head CT 03/12/18 1343 Signed Impressions: Service Date/Time: February 15:43 - CONCLUSION: 1. Chronic changes with moderately severe but symmetric cortical atrophy and a right para midline lacunar type infarct in the rj. 2. Nothing acute Lupillo Oquendo MD Chest X-Ray 03/12/18 2972 Signed Impressions: Service Date/Time: February 14:15 - CONCLUSION: No acute disease. Justin Fletcher MD A/P Problem List: (1) Altered mental status ICD Codes: R41.82 - Altered mental status, unspecified Status: Acute Plan: AMS Hx of recent CVA at multiple sites - Pt is an 82 y/o WF with recent history of CVA in 10/2017, hypertension, hyperlipidemia, hypothyroidism and hx of CAD. - Pt presented [place] [facility] [place] for AMS. Her reports that after the pts stroke in October 2017 that she has been more easily agitated but otherwise has been at her baseline mental status. Then 2 days ago the pt started becoming increasingly confused and agitated and was reportedly hallucinating and seeing people or objects in her house that weren't there. There has not been any reported slurred speech or difficulty swallowing. In the ED pt received IM Haldol and Ativan for significant agitation. There is been no reported fevers, chills. She she does have a family history of Alzheimer's disease. - Head CT in the ER noted chronic changes with moderately severe but symmetric cortical atrophy and a right para midline lacunar type infarct in the rj, nothing acute. - Her labs noted a hemolyzed potassium. Her renal function appears to be slightly higher then baseline CKD. Her urine is reportedly dark and UA is pending. - Pts AMS may be related to vascular dementia related to previous CVA and chronic vascular disease vs. metabolic causes vs. other - Pts is requesting Psych consultation. - Pts previous MRI in October 2017 noted a 3.7cm infarct in the right MCA distribution with mild associated enhancement postcontrast, subcentimeter infarct left MCA distribution peripherally and remote lacunar infarct in the cerebellum. Pt was placed on ASA following that admission. - TSH was 0.979. T4 was 1.06 - MRI brain (03/12) -->No acute abnormality is seen. Age-related atrophy. Evidence of prior insults at the right frontal lobe, medial right rj, and the right cerebellar hemisphere. Scattered mild suspected small vessel ischemic change in the white matter. - Previous MRA neck in October 2017 was unremarkable - 2D echo (10/30/17) --> EF 50%, mild mitral annular thickening, trace mitral regurg, mild aortic sclerosis, mild tricuspid regurg, PA pressure 32.1mmHg - UA was negative for infection - Give IVF for hypernatremia and hypoglycemia - Cont. ASA - Resumed Metoprolol - Telemetry - Pt started on Seroquel 25mg po BID and Ativan 1mg IV PRN for agitation - Discussed code status with the pts and he reports that she is a DNR today the pt is completely oriented. pleasant. following commands. cont ivf until assured taking in enough po. cont PT and oob. cont seroquel. likely stable for d/c from medical standpt by tomorrow. BETH on CKD, stage 3 - IVF HTN - Metoprolol resumed thsi morning, pt with some sinus tachycardia. No noted A. fib on telemetry - Clonidine PRN Hyperlipidemia - Resume home meds Hypothyroidism - Resume home meds (2) CVA (cerebral vascular accident) ICD Codes: I63.9 - Cerebral infarction, unspecified Status: Chronic (3) Hypothyroidism ICD Codes: E03.9 - Hypothyroidism, unspecified Status: Chronic (4) Hyperlipidemia ICD Codes: E78.5 - Hyperlipidemia, unspecified Status: Chronic (5) CKD (chronic kidney disease) stage 3, GFR 30-59 ml/min ICD Codes: N18.3 - Chronic kidney disease, stage 3 (moderate) Status: Chronic (6) Hypertension ICD Codes: I10 - Essential (primary) hypertension Status: Chronic Ignacio Mora MD March 14, 2018 09:14
[2018-03-14] MEDS: QUEtiapine FUMARATE 25 MG TAB PO SCH ×2 (10:08→20:43)
[2018-03-14] MEDS: ASPIRIN EC 325 MG TABEC PO SCH (10:08)
[2018-03-14] MEDS: METOPROLOL TARTRATE 25 MG TAB PO SCH ×2 (10:08→20:43)
[2018-03-14] MEDS: ATORVASTATIN 40 MG TAB PO SCH (20:43)
[2018-03-14] MEDS: FERROUS SULFATE 325 MG (65 MG ELEMENTAL IRON) TAB PO SCH (20:43)
[2018-03-15] VITALS (11 sets, daily range): BP systolic 100–173; BP diastolic 56–75; PULSE 71–85; RESP 17–20; TEMP 97.4–98.8; O2SAT 96–100
[2018-03-15] MEDS: DEXT 5%-NACL 0.45% 1000 ML INJ 1,000 ML IV SCH (05:47)
[2018-03-15] MEDS ORDERED: LEVOTHYROXINE SODIUM 88 MCG TAB PO SCH (06:00)
[2018-03-15 09:00] LABS: AUTOMATED NEUTROPHIL # 6.3 TH/MM3 (1.8-7.7); BASOPHIL % 0.2 % (0.0-2.0); EOSINOPHIL # 0.1 TH/MM3 (0-0.4); EOSINOPHIL % 1.4 % (0.0-4.0); LYMPH % 12.6 % (9.0-44.0); LYMPHOCYTE # 1.1 TH/MM3 (1.0-4.8); MEAN CELL VOLUME 100.1 FL (80.0-100.0); MEAN CORPUSCULAR HEMOGLOBIN 33.3 PG (27.0-34.0); MEAN CORPUSCULAR HGB CONC 33.2 % (32.0-36.0); MEAN PLATELET VOLUME 9.6 FL (7.0-11.0); MONO % 10.7 % (0.0-8.0); MONOCYTE # 0.9 TH/MM3 (0-0.9); NEUT % 75.1 % (16.0-70.0); PLATELET COUNT 184 TH/MM3 (150-450); RED CELL DISTRIBUTION WIDTH 13.4 % (11.6-17.2); WHITE BLOOD COUNT 8.4 TH/MM3 (4.0-11.0)
[2018-03-15] MEDS: SODIUM CHLORIDE 0.9% FLUSH 10 ML FLUSH IV FLUSH SCH ×2 (09:00→20:43)
[2018-03-15] MEDS: QUEtiapine FUMARATE 25 MG TAB PO SCH ×2 (09:05→20:43)
[2018-03-15] MEDS: METOPROLOL TARTRATE 25 MG TAB PO SCH ×2 (09:05→20:43)
[2018-03-15] MEDS: ASPIRIN EC 325 MG TABEC PO SCH (09:05)
[2018-03-15 09:24] LABS: BICARBONATE 20.5 MEQ/L (21.0-32.0); CALCIUM 8.2 MG/DL (8.5-10.1); CREATININE 1.13 MG/DL (0.50-1.00)
--- NOTE | 2018-03-15 11:48 | HHI.FF ---
Face to Face Verification Diagnosis: (1) Altered mental status (2) Hypertension (3) Hypothyroidism (4) Hyperlipidemia (5) CKD (chronic kidney disease) stage 3, GFR 30-59 ml/min Physical Therapy Order: Evaluate and Treat, Improve ambulation, Strength and gait training Home Health Nursing Order: Medical education Nursing assessment with vital signs I have seen patient Carmen Valentine on 03/15/18. My clinical findings support the need for the requested home health care services because: Impaired cognition/judgement I certify that my clinical findings support that this patient is homebound because: Impaired cognitive ability/safety Unsteady gait/balance Lorena Bowling March 15, 2018 11:48 Jarvis Pak DO March 15, 2018 12:14
[2018-03-15] MEDS ORDERED: SERO25TA PO (11:53)
--- NOTE | 2018-03-15 11:54 | HHI.DCPOC ---
Discharge Care Plan Diagnosis: (1) Hyperlipidemia (2) Hypothyroidism (3) Hypertension (4) CVA (cerebral vascular accident) (5) CKD (chronic kidney disease) stage 3, GFR 30-59 ml/min (6) Altered mental status Goals to Promote Your Health * To prevent worsening of your condition and complications * To maintain your health at the optimal level Directions to Meet Your Goals Take your medications as prescribed Follow your dietary instruction Follow activity as directed Keep your appointments as scheduled Take your immunizations and boosters as scheduled If your symptoms worsen call your PCP, if no PCP go to Urgent Care Center or Emergency Room Smoking is Dangerous to Your Health. Avoid second hand smoke Call the 24-hour hour crisis hotline for domestic abuse at Lorena Bowling March 15, 2018 11:54
[2018-03-15] MEDS ORDERED: LORA-474 PO (12:48)
--- NOTE | 2018-03-15 13:03 | HHI.PR ---
Subjective Remarks Pt is awake and agitated with her does not feel he will be able to handle her at home given his recent back surgery and difficulty with ambulation Objective Vitals Vital Signs Date Time Temp Pulse Resp B/P (MAP) Pulse Ox O2 Delivery O2 Flow Rate FiO2 03/15/18 12:00 97.8 71 18 115/59 (77) 100 03/15/18 08:00 98.1 79 18 158/75 (102) 99 03/15/18 04:20 98.1 79 18 145/73 (97) 97 03/15/18 03:39 85 03/14/18 23:58 98.5 74 18 132/75 (94) 99 03/14/18 23:42 76 03/14/18 22:10 Room Air 03/14/18 20:00 74 03/14/18 19:58 98.0 74 18 148/74 (98) 100 03/14/18 16:00 69 03/14/18 16:00 97.9 71 18 138/65 (89) 98 Result Diagram: 03/15/1871603/15/18716 Other Results Laboratory Tests Test 03/13/18 13:08 03/14/18 06:49 03/15/18 07:17 Total Bilirubin 0.5 MG/DL Direct Bilirubin 0.1 MG/DL Indirect Bilirubin 0.4 MG/DL Aspartate Amino Transf (AST/SGOT) 31 U/L Alanine Aminotransferase (ALT/SGPT) 20 U/L Alkaline Phosphatase 100 U/L Ammonia 32 MCMOL/L Total Protein 6.5 GM/DL Albumin 3.4 GM/DL Thiamine Level 153 nmol/L Vitamin B12 Level GREATER THAN 2000 PG/ML Folate 19.6 NG/ML White Blood Count 7.3 TH/MM3 8.4 TH/MM3 Red Blood Count 3.07 MIL/MM3 3.30 MIL/MM3 Hemoglobin 10.3 GM/DL 11.0 GM/DL Hematocrit 31.1 % 33.0 % Mean Corpuscular Volume 101.2 FL 100.1 FL Mean Corpuscular Hemoglobin 33.6 PG 33.3 PG Mean Corpuscular Hemoglobin Concent 33.2 % 33.2 % Red Cell Distribution Width 13.7 % 13.4 % Platelet Count 163 TH/MM3 184 TH/MM3 Mean Platelet Volume 9.5 FL 9.6 FL Neutrophils (%) (Auto) 65.9 % 75.1 % Lymphocytes (%) (Auto) 20.1 % 12.6 % Monocytes (%) (Auto) 9.9 % 10.7 % Eosinophils (%) (Auto) 3.5 % 1.4 % Basophils (%) (Auto) 0.6 % 0.2 % Neutrophils # (Auto) 4.8 TH/MM3 6.3 TH/MM3 Lymphocytes # (Auto) 1.5 TH/MM3 1.1 TH/MM3 Monocytes # (Auto) 0.7 TH/MM3 0.9 TH/MM3 Eosinophils # (Auto) 0.3 TH/MM3 0.1 TH/MM3 Basophils # (Auto) 0.0 TH/MM3 0.0 TH/MM3 CBC Comment DIFF FINAL DIFF FINAL Differential Comment Blood Urea Nitrogen 35 MG/DL 25 MG/DL Creatinine 1.20 MG/DL 1.13 MG/DL Random Glucose 102 MG/DL 116 MG/DL Calcium Level 8.4 MG/DL 8.2 MG/DL Magnesium Level 1.6 MG/DL Sodium Level 147 MEQ/L 142 MEQ/L Potassium Level 3.9 MEQ/L 3.7 MEQ/L Chloride Level 116 MEQ/L 113 MEQ/L Carbon Dioxide Level 21.3 MEQ/L 20.5 MEQ/L Anion Gap 10 MEQ/L 9 MEQ/L Estimat Glomerular Filtration Rate 43 ML/MIN 46 ML/MIN Imaging Last Impressions Head CT 03/12/18 1343 Signed Impressions: Service Date/Time: February 15:43 - CONCLUSION: 1. Chronic changes with moderately severe but symmetric cortical atrophy and a right para midline lacunar type infarct in the rj. 2. Nothing acute Lupillo Oquendo MD Chest X-Ray 03/12/18 1343 Signed Impressions: Service Date/Time: February 14:15 - CONCLUSION: No acute disease. Justin Fletcher MD Brain MRI 03/12/18 0000 Signed Impressions: Service Date/Time: February 18:03 - CONCLUSION: 1. No acute abnormality is seen. 2. Age-related atrophy. 3. Evidence of prior insults at the right frontal lobe, medial right rj, and the right cerebellar hemisphere. 4. Scattered mild suspected small vessel ischemic change in the white matter. Dre Cain MD Last Impressions Head CT 03/12/18 1343 Signed Impressions: Service Date/Time: February 15:43 - CONCLUSION: 1. Chronic changes with moderately severe but symmetric cortical atrophy and a right para midline lacunar type infarct in the rj. 2. Nothing acute Lupillo Oquendo MD Chest X-Ray 03/12/18 1343 Signed Impressions: Service Date/Time: February 14:15 - CONCLUSION: No acute disease. Justin Fletcher MD Objective Remarks General: NAD, Awake, alert, agitated Chest: CTA Cardiac: Regular Abd: +BS, soft ND/NT Ext: No edema A/P Problem List: (1) Altered mental status ICD Codes: R41.82 - Altered mental status, unspecified Status: Acute Plan: AMS Hx of recent CVA at multiple sites - Pt is an 82 y/o WF with recent history of CVA in 10/2017, hypertension, hyperlipidemia, hypothyroidism and hx of CAD. - Pt presented to the ED at [facility] on 03/12/18 for AMS. Her reports that after the pts stroke in October 2017 that she has been more easily agitated but otherwise has been at her baseline mental status. Then 2 days ago the pt started becoming increasingly confused and agitated and was reportedly hallucinating and seeing people or objects in her house that weren't there. There has not been any reported slurred speech or difficulty swallowing. In the ED pt received IM Haldol and Ativan for significant agitation. There is been no reported fevers, chills. She she does have a family history of Alzheimer's disease. - Head CT in the ER noted chronic changes with moderately severe but symmetric cortical atrophy and a right para midline lacunar type infarct in the rj, nothing acute. - Her labs noted a hemolyzed potassium. Her renal function appears to be slightly higher then baseline CKD. Her urine is reportedly dark and UA is pending. - Pts AMS may be related to vascular dementia related to previous CVA and chronic vascular disease vs. metabolic causes vs. other - Pts is requesting Psych consultation. - Pts previous MRI in October 2017 noted a 3.7cm infarct in the right MCA distribution with mild associated enhancement postcontrast, subcentimeter infarct left MCA distribution peripherally and remote lacunar infarct in the cerebellum. Pt was placed on ASA following that admission. - TSH was 0.979. T4 was 1.06 - MRI brain (03/12) -->No acute abnormality is seen. Age-related atrophy. Evidence of prior insults at the right frontal lobe, medial right rj, and the right cerebellar hemisphere. Scattered mild suspected small vessel ischemic change in the white matter. - Previous MRA neck in October 2017 was unremarkable - 2D echo (10/30/17) --> EF 50%, mild mitral annular thickening, trace mitral regurg, mild aortic sclerosis, mild tricuspid regurg, PA pressure 32.1mmHg - UA was negative for infection - Give IVF for hypernatremia and hypoglycemia - Cont. ASA - Resumed Metoprolol - Telemetry - Pt started on Seroquel 25mg po BID and Ativan 1mg IV PRN for agitation - Discussed code status with the pts and he reports that she is a DNR - Pts orientation improved on 03/14. She was rather agitated on 03/15 with discussions about rehab with the at bedside today. - Pts does not feel he will be able to handle her at home and requesting rehab placement. - [facility] her CVA in October BETH on CKD, stage 3 - Stop IVF - Encourage oral intake HTN - Metoprolol resumed on 03/13 - No noted A. fib on telemetry - Clonidine PRN Hyperlipidemia - Resume home meds Hypothyroidism - Resume home meds (2) CVA (cerebral vascular accident) ICD Codes: I63.9 - Cerebral infarction, unspecified Status: Chronic (3) Hypothyroidism ICD Codes: E03.9 - Hypothyroidism, unspecified Status: Chronic (4) Hyperlipidemia ICD Codes: E78.5 - Hyperlipidemia, unspecified Status: Chronic (5) CKD (chronic kidney disease) stage 3, GFR 30-59 ml/min ICD Codes: N18.3 - Chronic kidney disease, stage 3 (moderate) Status: Chronic (6) Hypertension ICD Codes: I10 - Essential (primary) hypertension Status: Chronic Problem Qualifiers (1) Altered mental status: Qualified Codes: R41.82 - Altered mental status, unspecified Lorena Bowling March 15, 2018 13:02
[2018-03-15] MEDS: LORazepam 2 MG/ML VIAL IV PUSH PRN (15:05)
[2018-03-15] MEDS: FERROUS SULFATE 325 MG (65 MG ELEMENTAL IRON) TAB PO SCH (20:43)
[2018-03-15] MEDS: ATORVASTATIN 40 MG TAB PO SCH (20:43)
[2018-03-16] VITALS (8 sets, daily range): BP systolic 100–174; BP diastolic 46–81; PULSE 73–92; RESP 17–19; TEMP 97.7–99.1; O2SAT 94–99
[2018-03-16] MEDS: LORazepam 2 MG/ML VIAL IV PUSH PRN (01:38)
[2018-03-16] MEDS: LEVOTHYROXINE SODIUM 88 MCG TAB PO SCH (06:15)
[2018-03-16] MEDS: QUEtiapine FUMARATE 25 MG TAB PO SCH ×2 (09:21→19:53)
[2018-03-16] MEDS: ASPIRIN EC 325 MG TABEC PO SCH (09:21)
[2018-03-16] MEDS: SODIUM CHLORIDE 0.9% FLUSH 10 ML FLUSH IV FLUSH SCH ×2 (09:21→19:56)
[2018-03-16] MEDS: METOPROLOL TARTRATE 25 MG TAB PO SCH ×2 (09:21→19:53)
--- NOTE | 2018-03-16 10:51 | HHI.PYPN ---
Subjective Remarks The patient was seen today for psychiatric evaluation, she was sleeping, she seems to be quite sedated. She reports feeling okay, she seems to be confused, but she is partially oriented. At this moment she denies depression, she denies visual and auditory hallucinations at the moment, no agitation or aggressive behavior reported. She does not seem to be very preoccupied with people coming inside her room this moment. As per conversation with nursing charge the patient has being doing better, not reporting visual hallucinations, but sedated during the morning. Review of Systems Except as stated in HPI: all other systems reviewed are Neg Mental Status Examination Appearance: Appropriate Consciousness: Alert Orientation: Person, Place Motor Activity: Normal gait Speech: Unremarkable Language: Adequate Fund of Knowledge: Adequate Attention and Concentration: Adequate Memory: Impaired Mood: Appropriate Affect: Appropriate Thought Process & Associations: Intact Thought Content: Appropriate Hallucination Type: None Delusion Type: None Suicidal Ideation: No Suicidal Plan: No Suicidal Intention: No Homicidal Ideation: No Homicidal Plan: No Homicidal Intention: No Insight: Fair Judgment: Impulsive Results Labs Date/Time Source Procedure Growth Status 03/14/18 11:05 Stool Stool Stool Occult Blood (CRISTÓBAL) - Final HEMOCCULT NEGATIVE Complete Vitals/IOs Vital Signs Date Time Temp Pulse Resp B/P (MAP) Pulse Ox O2 Delivery O2 Flow Rate FiO2 03/16/18 10:10 98.7 92 18 174/81 (112) 96 03/16/18 09:22 Room Air Intake and Output 03/16/18 03/16/18 03/17/18 08:00 16:00 00:00 Intake Total 240 ml Balance 240 ml Assessment & Plan Problem List: (1) Unspecified psychosis ICD Codes: F29 - Unspecified psychosis not due to a substance or known physiological condition Assessment & Plan: No prominent visual hallucinations seen at this moment. Patient is to be too sedated. I will discontinue Seroquel in the morning. Just continue Seroquel 25 mg at bedtime. Assessment & Plan Estimated LOS: days Justification for Cont. Inpt. no indications for admission Luis Miguel Gurrola MD March 16, 2018 10:51
--- NOTE | 2018-03-16 11:14 | HHI.PR ---
Subjective Remarks Pt had been planned for discharge to SNF today but was called yesterday afternoon and informed by nursing staff that the pt had fallen in the room. There was no sustained head injury, LOC, or complaints of pain yesterday This morning, I was called by abe this morning and reports that the pt is complaining of right thigh pain today. We will obtain Xrays of right hip, femur and knee prior to discharge today reports that the pt has not been eating or drinking much the last two days Pt received IV Ativan last night for agitation. Objective Vitals Vital Signs Date Time Temp Pulse Resp B/P (MAP) Pulse Ox O2 Delivery O2 Flow Rate FiO2 03/16/18 10:10 98.7 92 18 174/81 (112) 96 03/16/18 09:22 Room Air 03/16/18 06:10 98.2 91 19 153/72 (99) 94 03/16/18 06:10 98.2 91 19 153/72 (99) 94 03/16/18 02:10 99.1 89 18 165/74 (104) 96 03/15/18 22:10 98.1 85 17 158/72 (100) 99 03/15/18 19:00 97.4 74 17 147/67 (93) 97 03/15/18 18:10 98.8 72 20 149/68 (95) 96 03/15/18 17:10 98.8 72 18 152/65 (94) 99 03/15/18 16:10 98.5 75 18 100/56 (71) 96 03/15/18 15:10 98.0 77 18 147/69 (95) 98 03/15/18 14:10 98.0 78 18 173/71 (105) 98 03/15/18 12:00 97.8 71 18 115/59 (77) 100 Result Diagram: 03/15/18 0717 03/15/18 0717 Other Results Laboratory Tests Test 03/15/18 07:17 White Blood Count 8.4 TH/MM3 Red Blood Count 3.30 MIL/MM3 Hemoglobin 11.0 GM/DL Hematocrit 33.0 % Mean Corpuscular Volume 100.1 FL Mean Corpuscular Hemoglobin 33.3 PG Mean Corpuscular Hemoglobin Concent 33.2 % Red Cell Distribution Width 13.4 % Platelet Count 184 TH/MM3 Mean Platelet Volume 9.6 FL Neutrophils (%) (Auto) 75.1 % Lymphocytes (%) (Auto) 12.6 % Monocytes (%) (Auto) 10.7 % Eosinophils (%) (Auto) 1.4 % Basophils (%) (Auto) 0.2 % Neutrophils # (Auto) 6.3 TH/MM3 Lymphocytes # (Auto) 1.1 TH/MM3 Monocytes # (Auto) 0.9 TH/MM3 Eosinophils # (Auto) 0.1 TH/MM3 Basophils # (Auto) 0.0 TH/MM3 CBC Comment DIFF FINAL Differential Comment Blood Urea Nitrogen 25 MG/DL Creatinine 1.13 MG/DL Random Glucose 116 MG/DL Calcium Level 8.2 MG/DL Sodium Level 142 MEQ/L Potassium Level 3.7 MEQ/L Chloride Level 113 MEQ/L Carbon Dioxide Level 20.5 MEQ/L Anion Gap 9 MEQ/L Estimat Glomerular Filtration Rate 46 ML/MIN Imaging Last Impressions Head CT 03/12/18 1343 Signed Impressions: Service Date/Time: February 15:43 - CONCLUSION: 1. Chronic changes with moderately severe but symmetric cortical atrophy and a right para midline lacunar type infarct in the rj. 2. Nothing acute Lupillo Oquendo MD Chest X-Ray 03/12/18 1343 Signed Impressions: Service Date/Time: February 14:15 - CONCLUSION: No acute disease. Justin Fletcher MD Brain MRI 03/12/18 0000 Signed Impressions: Service Date/Time: February 18:03 - CONCLUSION: 1. No acute abnormality is seen. 2. Age-related atrophy. 3. Evidence of prior insults at the right frontal lobe, medial right rj, and the right cerebellar hemisphere. 4. Scattered mild suspected small vessel ischemic change in the white matter. Dre Cain MD Last Impressions Head CT 03/12/18 1343 Signed Impressions: Service Date/Time: February 15:43 - CONCLUSION: 1. Chronic changes with moderately severe but symmetric cortical atrophy and a right para midline lacunar type infarct in the rj. 2. Nothing acute Lupillo Oquendo MD Chest X-Ray 03/12/18 1343 Signed Impressions: Service Date/Time: Thursday, March 12, 2018 14:15 - CONCLUSION: No acute disease. Justin Fletcher MD Objective Remarks General: NAD, Awake, alert, agitated Chest: CTA Cardiac: Regular Abd: +BS, soft ND/NT Ext: No edema A/P Problem List: (1) Altered mental status ICD Codes: R41.82 - Altered mental status, unspecified Status: Acute Plan: AMS Hx of recent CVA at multiple sites - Pt is an 82 y/o WF with recent history of CVA in 10/2017, hypertension, hyperlipidemia, hypothyroidism and hx of CAD. - Pt presented to the ED at [facility] on 03/12/18 for AMS. Her reports that after the pts stroke in October 2017 that she has been more easily agitated but otherwise has been at her baseline mental status. Then 2 days ago the pt started becoming increasingly confused and agitated and was reportedly hallucinating and seeing people or objects in her house that weren't there. There has not been any reported slurred speech or difficulty swallowing. In the ED pt received IM Haldol and Ativan for significant agitation. There is been no reported fevers, chills. She she does have a family history of Alzheimer's disease. - Head CT in the ER noted chronic changes with moderately severe but symmetric cortical atrophy and a right para midline lacunar type infarct in the rj, nothing acute. - Her labs noted a hemolyzed potassium. Her renal function appears to be slightly higher then baseline CKD. Her urine is reportedly dark and UA is pending. - Pts AMS may be related to vascular dementia related to previous CVA and chronic vascular disease vs. metabolic causes vs. other - Pts is requesting Psych consultation. - Pts previous MRI in October 2017 noted a 3.7cm infarct in the right MCA distribution with mild associated enhancement postcontrast, subcentimeter infarct left MCA distribution peripherally and remote lacunar infarct in the cerebellum. Pt was placed on ASA following that admission. - TSH was 0.979. T4 was 1.06 - MRI brain (03/12) -->No acute abnormality is seen. Age-related atrophy. Evidence of prior insults at the right frontal lobe, medial right rj, and the right cerebellar hemisphere. Scattered mild suspected small vessel ischemic change in the white matter. - Previous MRA neck in October 2017 was unremarkable - 2D echo (10/30/17) --> EF 50%, mild mitral annular thickening, trace mitral regurg, mild aortic sclerosis, mild tricuspid regurg, PA pressure 32.1mmHg - UA was negative for infection - Give IVF for hypernatremia and hypoglycemia - Cont. ASA - Resumed Metoprolol - Telemetry - Pt started on Seroquel 25mg po BID and Ativan 1mg IV PRN for agitation - Discussed code status with the pts and he reports that she is a DNR - Pts orientation improved on 03/14. She was rather agitated on 03/15 with discussions about rehab with the at bedside today. - Pts does not feel he will be able to handle her at home and requesting rehab placement. - Pt fell in the room on 03/15, obtain Xray of right hip, femur and knee, prior to discharge to later today BETH on CKD, stage 3 - Stop IVF - Encourage oral intake HTN - Metoprolol resumed on 03/13 - No noted A. fib on telemetry - Clonidine PRN Hyperlipidemia - Resume home meds Hypothyroidism - Resume home meds (2) CVA (cerebral vascular accident) ICD Codes: I63.9 - Cerebral infarction, unspecified Status: Chronic (3) Hypothyroidism ICD Codes: E03.9 - Hypothyroidism, unspecified Status: Chronic (4) Hyperlipidemia ICD Codes: E78.5 - Hyperlipidemia, unspecified Status: Chronic (5) CKD (chronic kidney disease) stage 3, GFR 30-59 ml/min ICD Codes: N18.3 - Chronic kidney disease, stage 3 (moderate) Status: Chronic (6) Hypertension ICD Codes: I10 - Essential (primary) hypertension Status: Chronic Problem Qualifiers (1) Altered mental status: Qualified Codes: R41.82 - Altered mental status, unspecified Lorena Bowling March 16, 2018 11:13
[2018-03-16] MEDS ORDERED: LORazepam 0.5 MG TAB SL PRN (14:15)
--- NOTE | 2018-03-16 14:37 | RADRPT ---
EXAM DATE/TIME: 03/16/2018 14:10 [facility] COMPARISON: No previous studies available for comparison. INDICATIONS : Pain right hip, femur and knee MEDICAL HISTORY : Renal insufficiency, chronic. CVA, confusion SURGICAL HISTORY : CABG. Cholecystectomy. ENCOUNTER: Subsequent ACUITY: 1 day PAIN SCORE: Non-responsive. LOCATION: Right femur FINDINGS: Two view examination of the right femur demonstrates no evidence of fracture or dislocation. Bony mi neralization is normal. The soft tissue structures are intact. Vascular calcifications. Mild arthrit ic change in the hip and knee. CONCLUSION: Unremarkable examination of the right femur. Dre Miller MD on March 16, 2018 at 14:34 Board Certified Radiologist. This report was verified electronically.
--- NOTE | 2018-03-16 14:38 | RADRPT ---
EXAM DATE/TIME: 03/16/2018 14:10 [facility] COMPARISON: No previous studies available for comparison. INDICATIONS : Pain right knee MEDICAL HISTORY : CVA, confusion SURGICAL HISTORY : CABG. Cholecystectomy. ENCOUNTER: Subsequent ACUITY: 1 day PAIN SCORE: Non-responsive. LOCATION: Right knee FINDINGS: Two view examination of the right knee demonstrates no evidence of fracture or dislocation. Bony min eralization is normal. The suprapatellar soft tissues have a normal configuration. Vascular calcific ations noted CONCLUSION: Unremarkable limited examination of the right knee. Dre Miller MD on March 16, 2018 at 14:35 Board Certified Radiologist. This report was verified electronically.
--- NOTE | 2018-03-16 14:38 | RADRPT ---
EXAM DATE/TIME: 03/16/2018 14:10 [facility] COMPARISON: No previous studies available for comparison. INDICATIONS : Right hip pain MEDICAL HISTORY : Renal insufficiency, chronic. CVA, confusion SURGICAL HISTORY : CABG. Cholecystectomy. ENCOUNTER: Subsequent ACUITY: 1 day PAIN SCORE: Non-responsive. LOCATION: Right hip FINDINGS: Mild degenerative changes in the hips bilaterally with superior joint space narrowing and subchondral sclerosis present. No evidence of fracture or dislocation. There is no evidence of displaced pelvic fracture. There are arthritic changes in the SI joints bilaterally, right worse than left. CONCLUSION: No acute bony findings Dre Miller MD on March 16, 2018 at 14:36 Board Certified Radiologist. This report was verified electronically.
[2018-03-16] MEDS: ATORVASTATIN 40 MG TAB PO SCH (19:56)
[2018-03-16] MEDS: FERROUS SULFATE 325 MG (65 MG ELEMENTAL IRON) TAB PO SCH (19:56)
[2018-03-17] MEDS: LEVOTHYROXINE SODIUM 88 MCG TAB PO SCH (05:59)
[2018-03-17 07:31] VITALS: BP 146/64; PULSE 84; RESP 19; TEMP 98.2; O2SAT 98
[2018-03-17] MEDS: METOPROLOL TARTRATE 25 MG TAB PO SCH (07:45)
[2018-03-17] MEDS: QUEtiapine FUMARATE 25 MG TAB PO SCH (07:45)
[2018-03-17] MEDS: ASPIRIN EC 325 MG TABEC PO SCH (07:45)
[2018-03-17] MEDS: SODIUM CHLORIDE 0.9% FLUSH 10 ML FLUSH IV FLUSH SCH (07:45)
[2018-03-17] MEDS: ACETAMINOPHEN 325 MG TAB PO PRN ×2 (07:51→12:09)
[2018-03-17 11:05] VITALS: BP 117/58; PULSE 74; RESP 18; TEMP 97.3; O2SAT 99
--- NOTE | 2018-03-17 13:48 | HHI.PR ---
Subjective Remarks Pt is more awake today but seems more agitated Pts nurse reports that she only ate about 15% of her dinner last night and a few bites of breakfast this morning Pts at bedside is wanting to speak with Hospice route sales representative for informational meeting. Objective Vitals Vital Signs Date Time Temp Pulse Resp B/P (MAP) Pulse Ox O2 Delivery O2 Flow Rate FiO2 03/17/18 11:05 97.3 74 18 117/58 (77) 99 03/17/18 07:31 98.2 84 19 146/64 (91) 98 03/16/18 20:47 97.8 78 17 126/56 (79) 95 03/16/18 18:10 98.4 80 131/61 (84) 95 03/16/18 15:36 98.2 74 18 116/57 (76) 98 03/16/18 14:10 97.9 73 17 100/46 (64) 99 Result Diagram: 03/15/18 0717 03/15/18 0717 Imaging Last Impressions Knee X-Ray 03/16/18 1329 Signed Impressions: Service Date/Time: Friday, March 16, 2018 14:10 - CONCLUSION: Unremarkable limited examination of the right knee. Dre Miller MD Hip and Pelvis X-Ray 03/16/18 1329 Signed Impressions: Service Date/Time: Friday, March 16, 2018 14:10 - CONCLUSION: No acute bony findings Dre Miller MD Femur X-Ray 03/16/18 1329 Signed Impressions: Service Date/Time: Friday, March 16, 2018 14:10 - CONCLUSION: Unremarkable examination of the right femur. Dre Miller MD Head CT 03/12/18 1343 Signed Impressions: Service Date/Time: February 15:43 - CONCLUSION: 1. Chronic changes with moderately severe but symmetric cortical atrophy and a right para midline lacunar type infarct in the rj. 2. Nothing acute Lupillo Oquendo MD Chest X-Ray 03/12/18 1343 Signed Impressions: Service Date/Time: February 14:15 - CONCLUSION: No acute disease. Justin Fletcher MD Brain MRI 03/12/18 0000 Signed Impressions: Service Date/Time: February 18:03 - CONCLUSION: 1. No acute abnormality is seen. 2. Age-related atrophy. 3. Evidence of prior insults at the right frontal lobe, medial right rj, and the right cerebellar hemisphere. 4. Scattered mild suspected small vessel ischemic change in the white matter. Dre Cain MD Objective Remarks General: NAD, Awake, alert, agitated Chest: CTA Cardiac: Regular Abd: +BS, soft ND/NT Ext: No edema A/P Problem List: (1) Altered mental status ICD Codes: R41.82 - Altered mental status, unspecified Status: Acute Plan: AMS, dementia Hx of recent CVA at multiple sites - Pt is an 82 y/o WF with recent history of CVA in 10/2017, hypertension, hyperlipidemia, hypothyroidism and hx of CAD. - Pt presented to the ED at [facility] on 03/12/18 for AMS. Her reports that after the pts stroke in October 2017 that she has been more easily agitated but otherwise has been at her baseline mental status. Then 2 days ago the pt started becoming increasingly confused and agitated and was reportedly hallucinating and seeing people or objects in her house that weren't there. There has not been any reported slurred speech or difficulty swallowing. In the ED pt received IM Haldol and Ativan for significant agitation. There is been no reported fevers, chills. She she does have a family history of Alzheimer's disease. - Head CT in the ER noted chronic changes with moderately severe but symmetric cortical atrophy and a right para midline lacunar type infarct in the rj, nothing acute. - Her labs noted a hemolyzed potassium. Her renal function appears to be slightly higher then baseline CKD. Her urine is reportedly dark and UA is pending. - Pts AMS may be related to vascular dementia related to previous CVA and chronic vascular disease vs. metabolic causes vs. other - Pts is requesting Psych consultation. - Pts previous MRI in October 2017 noted a 3.7cm infarct in the right MCA distribution with mild associated enhancement postcontrast, subcentimeter infarct left MCA distribution peripherally and remote lacunar infarct in the cerebellum. Pt was placed on ASA following that admission. - TSH was 0.979. T4 was 1.06 - MRI brain (03/12) -->No acute abnormality is seen. Age-related atrophy. Evidence of prior insults at the right frontal lobe, medial right rj, and the right cerebellar hemisphere. Scattered mild suspected small vessel ischemic change in the white matter. - Previous MRA neck in October 2017 was unremarkable - 2D echo (10/30/17) --> EF 50%, mild mitral annular thickening, trace mitral regurg, mild aortic sclerosis, mild tricuspid regurg, PA pressure 32.1mmHg - UA was negative for infection - Give IVF for hypernatremia and hypoglycemia - Cont. ASA - Telemetry - Pt started on Seroquel 25mg po BID and Ativan 1mg IV PRN for agitation - Discussed code status with the pts and he reports that she is a DNR - Pts orientation improved on 03/14. She was rather agitated on 03/15 with discussions about rehab with the at bedside today. - Pts does not feel he will be able to handle her at home and requesting rehab placement. - Pt fell in the room on 03/15, Xray of right hip, femur and knee were all unremarkable. - Discussed with the pts on 03/16 that the pt has not been eating much and is still rather agitated at times. She seems to be waxing and waning - She was very lethargic on 03/16 but this may have been related to the Ativan she had received during the night. He and the pts sister spoke on 03/16 and they wanted to meet with a Hospice care nurse for informational meeting. - We will consult Hospice for informational meeting. BETH on CKD, stage 3 - Stop IVF - Encourage oral intake HTN - Metoprolol resumed on 03/13 - No noted A. fib on telemetry - Clonidine PRN Hyperlipidemia - Resume home meds Hypothyroidism - Resume home meds (2) CVA (cerebral vascular accident) ICD Codes: I63.9 - Cerebral infarction, unspecified Status: Chronic (3) Hypothyroidism ICD Codes: E03.9 - Hypothyroidism, unspecified Status: Chronic (4) Hyperlipidemia ICD Codes: E78.5 - Hyperlipidemia, unspecified Status: Chronic (5) CKD (chronic kidney disease) stage 3, GFR 30-59 ml/min ICD Codes: N18.3 - Chronic kidney disease, stage 3 (moderate) Status: Chronic (6) Hypertension ICD Codes: I10 - Essential (primary) hypertension Status: Chronic Problem Qualifiers (1) Altered mental status: Qualified Codes: R41.82 - Altered mental status, unspecified Lorena Bowling March 17, 2018 13:48
== END 2018-03-17 16:23 | disposition hospice, inpatient (51) | DRG 884 ==
LOC: NEPE 13:36 → NEDA 16:21 → N06A 18:35
PROVIDERS: ADMIT Hospitalist; ATTEND Hospitalist
DX: F03.90 Unspecified dementia, unspecified severity, without behavioral disturbance, psychotic disturbance, mood disturbance, and anxiety (principal); I63.9 Cerebral infarction, unspecified; N17.9 Acute kidney failure, unspecified; E87.0 Hyperosmolality and hypernatremia; R41.82 Altered mental status, unspecified; N18.3 Chronic kidney disease, stage 3 (moderate); I12.9 Hypertensive chronic kidney disease with stage 1 through stage 4 chronic kidney disease, or unspecified chronic kidney disease; E78.00 Pure hypercholesterolemia, unspecified; E03.9 Hypothyroidism, unspecified; F29 Unspecified psychosis not due to a substance or known physiological condition; E78.5 Hyperlipidemia, unspecified; R00.0 Tachycardia, unspecified; F41.9 Anxiety disorder, unspecified; E16.2 Hypoglycemia, unspecified; I25.10 Atherosclerotic heart disease of native coronary artery without angina pectoris; H54.8 Legal blindness, as defined in USA; H35.30 Unspecified macular degeneration; M19.90 Unspecified osteoarthritis, unspecified site; M79.651 Pain in right thigh; W19.XXXA Unspecified fall, initial encounter; Y92.230 Patient room in hospital as the place of occurrence of the external cause; Z95.1 Presence of aortocoronary bypass graft; Z86.73 Personal history of transient ischemic attack (TIA), and cerebral infarction without residual deficits; Z79.899 Other long term (current) drug therapy; Z95.5 Presence of coronary angioplasty implant and graft; Z79.82 Long term (current) use of aspirin; Z66 Do not resuscitate
CPT/HCPCS: 70450; 70551; 71045; 73502; 73552; 73560; 76937; 80048; 80053; 80076; 81001; 82140; 82272; 82550; 82552; 82607; 82746; 82948; 83735; 84425; 84439; 84443; 84481; 84484; 85025; 93005; 96372; J1630; J2060; J7030; J7040